=== PATIENT | female | born 1940 | race Caucasian/White ===

== ENCOUNTER 2019-12-22 12:25 | Inpatient (IN) ==
--- NOTE | 2019-12-22 12:54 | ED.PDOC ---
General ED Provider: Dr. SHAYY PEREZ MD Chief Complaint: Extremity Swelling/Pain Stated Complaint: mild to mod general weakness for one week, released from [facility] on , pt of Dr Ac, hx bilateral extremity swelling, poor historian, no injury Time Seen by Physician: 12:52 Mode of Arrival: Ambulance Information Source: Patient and EMT Primary Care Provider: MATTI AC Nursing and Triage Documentation Reviewed and Agree: Yes Does patient meet sepsis criteria?: No System Inflammatory Response Syndrome: Not Applicable Sepsis Protocol: For patient's 13 years and over: Temp is 96.8 and below OR 101 and greater Pulse >90 BPM Resp >20/minute Acutely Altered Mental Status Are patient's symptoms suggestive of a new infection, such as: -Pneumonia -Skin, Soft Tissue -Endocarditis -UTI -Bone, Joint Infection -Implantable Device -Acute Abdominal Infection -Wound Infection -Meningitis -Blood Stream Catheter Infection -Unknown Miscellaneous Complaint Exam Complex/Multi-System Complaint/Exam Onset/Duration: one week Symptoms Are: Still present Initial Severity: Mild Current Severity: Moderate Location of Pain: diffuse aches Associated Signs and Symptoms: Reports Weakness and Edema; Denies Syncope, Headache, Short of air, Cough, Chest pain, Vomiting and Fever Review of Systems Review Of Systems Constitutional: Reports Malaise and Weakness; Denies Fever Eyes: Denies Vision change and Drainage Ears, Nose, Mouth, Throat: Denies Throat pain Respiratory: Reports Cough; Denies Short of air, Stridor and Wheezing Cardiac: Denies Chest pain GI: Denies Abdominal pain and Vomiting : Denies Burning Musculoskeletal: Denies Neck pain Skin: Denies Cyanosis Neurological: Denies Headache All Other Systems: Other PFSH Female Reproductive History Menstrual Hx Hysterectomy: Yes Hx Tubal Ligation: No Physical Exam Physical Exam Appearance: Reports No pain distress Eyes: Reports Conjunctiva clear ENT: Reports Oropharynx normal Neck: Supple Respiratory: Reports Airway patent and Breath sounds equal Cardiovascular: Reports Tachycardia GI/: Reports Soft and Nontender Musculoskeletal: Denies No edema Skin: Reports Warm and Dry; Denies Cyanotic Neurological: Reports Sensation intact, Alert and Oriented Psychiatric: Reports Affect appropriate Interpretation Radiology Interpretation Radiology Interpretation By: Radiologist Exam Interpreted: Portable CXR Xray Comments: possible left base infil EKG Interpretation Time of EKG #1: 13:49 Rate: Tachy Rhythm: Sinus Ectopy: None Interpretation: no stemi, anterolateral t abnormality also seen 01/2014 Re-Evaluation Re-Evaluation Time of Re-Evaluation: 13:50 Status: Unchanged Vital Signs Stable: Yes Appearance: NAD Skin: Warm and Dry CV: RRR Additional Comments: admit to tele d/w Dr Ac Critical Care Note Critical Care Note Total Time (mins): 0 Course Course Hematology/Chemistry: 12/22/19 13:00 12/22/19 13:00 Orders, Labs, Meds: Lab Review 12/22/19 12/22/19 12/22/19 13:00 13:00 13:00 WBC 9.25 RBC 3.14 L Hgb 10.1 L Hct 31.9 L MCV 101.6 H MCH 32.2 H MCHC 31.7 L RDW Coeff of Vishnu 14.3 Plt Count 272 Immature Gran % (Auto) 4.0 Neut % (Auto) 71.7 Lymph % (Auto) 15.1 [place] % (Auto) 7.5 Eos % (Auto) 1.5 Baso % (Auto) 0.2 Neut # (Auto) 6.6 Lymph # (Auto) 1.4 [place] # (Auto) 0.7 Eos # (Auto) 0.1 Baso # (Auto) 0.0 Immature Gran # (Auto) 0.4 PT 10.1 INR 1.03 Puncture Site O2 Saturation ABG pH ABG pCO2 ABG pO2 ABG HCO3 ABG Total CO2 ABG Base Excess Lorenzo Test O2 Delivery Device Oxygen Liter Flow Sodium 132.8 L Potassium 4.36 Chloride 98.3 Carbon Dioxide 30.3 H Anion Gap 8.56 BUN 17.8 H Creatinine 0.80 Estimated GFR (MDRD) 69.00 BUN/Creatinine Ratio 22.25 Glucose 111.5 H Lactic Acid Calcium 8.43 Total Bilirubin 0.33 AST 34.2 ALT 23.0 Alkaline Phosphatase 113.0 Total Creatine Kinase 30.4 Troponin I 0.017 Total Protein 5.38 L Albumin 2.78 L Globulin 2.60 Albumin/Globulin Ratio 1.06 Procalcitonin Urine Color Urine Clarity Urine pH Ur Specific [place] Urine Protein Urine Glucose (UA) Urine Ketones Urine Blood Urine Nitrite Urine Bilirubin Urine Urobilinogen Ur Leukocyte Esterase Urine Microscopic WBC Ur Squamous Epith Cells Urine Bacteria Urine Yeast 12/22/19 12/22/19 12/22/19 13:00 13:00 13:00 WBC RBC Hgb Hct MCV MCH MCHC RDW Coeff of Vishnu Plt Count Immature Gran % (Auto) Neut % (Auto) Lymph % (Auto) [place] % (Auto) Eos % (Auto) Baso % (Auto) Neut # (Auto) Lymph # (Auto) [place] # (Auto) Eos # (Auto) Baso # (Auto) Immature Gran # (Auto) PT INR Puncture Site O2 Saturation ABG pH ABG pCO2 ABG pO2 ABG HCO3 ABG Total CO2 ABG Base Excess Lorenzo Test O2 Delivery Device Oxygen Liter Flow Sodium Potassium Chloride Carbon Dioxide Anion Gap BUN Creatinine Estimated GFR (MDRD) BUN/Creatinine Ratio Glucose Lactic Acid 1.99 Calcium Total Bilirubin AST ALT Alkaline Phosphatase Total Creatine Kinase Troponin I Total Protein Albumin Globulin Albumin/Globulin Ratio Procalcitonin 0.16 Urine Color Yellow Urine Clarity Turbid Urine pH 8.5 Ur Specific [place] 1.020 Urine Protein 2+ H Urine Glucose (UA) Negative Urine Ketones Negative Urine Blood 2+ H Urine Nitrite Negative Urine Bilirubin Negative Urine Urobilinogen 0.2 Ur Leukocyte Esterase 3+ H Urine Microscopic WBC Tntc Ur Squamous Epith Cells 2-5 Urine Bacteria 1+ Urine Yeast 1+ 12/22/19 13:05 WBC RBC Hgb Hct MCV MCH MCHC RDW Coeff of Vishnu Plt Count Immature Gran % (Auto) Neut % (Auto) Lymph % (Auto) [place] % (Auto) Eos % (Auto) Baso % (Auto) Neut # (Auto) Lymph # (Auto) [place] # (Auto) Eos # (Auto) Baso # (Auto) Immature Gran # (Auto) PT INR Puncture Site + O2 Saturation 99.0 ABG pH 7.457 H ABG pCO2 39.9 ABG pO2 130.0 H ABG HCO3 28.2 H ABG Total CO2 29 H ABG Base Excess 4 H Lorenzo Test L brach O2 Delivery Device Nc Oxygen Liter Flow 2.00 Sodium Potassium Chloride Carbon Dioxide Anion Gap BUN Creatinine Estimated GFR (MDRD) BUN/Creatinine Ratio Glucose Lactic Acid Calcium Total Bilirubin AST ALT Alkaline Phosphatase Total Creatine Kinase Troponin I Total Protein Albumin Globulin Albumin/Globulin Ratio Procalcitonin Urine Color Urine Clarity Urine pH Ur Specific [place] Urine Protein Urine Glucose (UA) Urine Ketones Urine Blood Urine Nitrite Urine Bilirubin Urine Urobilinogen Ur Leukocyte Esterase Urine Microscopic WBC Ur Squamous Epith Cells Urine Bacteria Urine Yeast Orders Category Date Time Status ABG DRAW REQUEST Stat CARDIO 06/29/20 12:49 Completed EKG-(ED ONLY) Stat CARDIO 12/22/19 13:11 Completed ABG Stat LAB 12/22/19 13:05 Completed BLOOD CULTURE Stat LAB 12/22/19 13:47 Ordered CBC W/ AUTO DIFF Stat LAB 12/22/19 13:00 Completed COMPREHENSIVE METABOLIC PANEL Stat LAB 12/22/19 13:00 Completed CREATINE KINASE Stat LAB 12/22/19 13:00 Completed LACTIC ACID Stat LAB 12/22/19 13:00 Completed PROCALCITONIN Stat LAB 12/22/19 13:00 Completed PT WITH INR Stat LAB 12/22/19 13:00 Completed TROPONIN I Stat LAB 12/22/19 13:00 Completed URINALYSIS C & S IF INDICATED Stat LAB 12/22/19 13:00 Completed URINE CULTURE Stat LAB 12/22/19 13:00 Received 1 gm/50 ml IV Daily Ninfa MEDS 12/23/19 09:00 Ordered Ceftriaxone/D5w 1 gm Premix [Rocephin 1 gm/50 ml D5w] 1 gm in 50 ml IV DAILY CHEST, 1V AP ONLY Stat RADS 12/22/19 12:49 Completed Vital Signs: Temp Pulse Resp BP Pulse Ox 12/22/19 12:26 97.7 F 114 H 24 106/56 L 98 Discharge Plan Discharge Patient Disposition: ADMITTED INPATIENT Discharge Problem: Urinary tract infectious disease, Tachycardia Prescriptions: No Action simvastatin 20 MG tablet 20 mg PO DAILY RF: 0 omeprazole 20 MG capsule,delayed release(DR/EC) 20 mg PO DAILY RF: 0 lisinopril-hydrochlorothiazide [Zestoretic] 1 EACH tablet 1 ea PO DAILY RF: 0 fluticasone propion-salmeterol [Advair Diskus] 1 PUFF blister with device 1 puff inhalation BID RF: 0 ursodiol 250 MG tablet 250 mg PO BID RF: 0 Myrbetriq 50 MG tablet extended release 24 hr 50 mg PO DAILY Qty: 21 RF: 0 Eliquis 5 mg Tablet 5 mg PO BID RF: 0 ED Provider: SHAYY PEREZ Condition: Stable
[2019-12-22 13:07] LABS: HEMATOCRIT 31.9 % (37.0-47.0)
--- NOTE | 2019-12-22 13:36 | DI ---
EXAM: Chest one view, frontal view only. HISTORY: Weakness. COMPARISON: 02/02/2014. FINDINGS: The heart size is normal. There is no pulmonary vascular congestion. There is increased opacity in the left retrocardiac region with blunting of left costophrenic angle. Otherwise, the jose gs are clear. No pleural effusion or pneumothorax is seen. No acute osseous abnormality is identifi ed. IMPRESSION: Left basilar opacity could be accentuated by portable technique. Mild consolidation not excluded.
[2019-12-22] MEDS ORDERED: ATROPINE SULFATE PFS IVP PRN (13:52)
[2019-12-22] MEDS ORDERED: VISTARIL INJ IM PRN (13:52)
[2019-12-22] MEDS ORDERED: NITROSTAT SL PRN (13:52)
[2019-12-22] MEDS ORDERED: ROCEPHIN 1 GM/50 ML D5W 1 GM/50 ML BAG IV STA (14:06)
[2019-12-22 15:48] VITALS: BMI 26.7
[2019-12-22] MEDS ORDERED: LASIX IVP STA (16:36)
[2019-12-22] MEDS: CALMOSEPTINE OINTMENT TP PRN (17:16)
[2019-12-22] MEDS: TYLENOL PO PRN (17:16)
[2019-12-22] MEDS: SODIUM CHLORIDE 1,000 ML IV SCH (17:17)
[2019-12-22] MEDS: ADVAIR 250-50 DISKUS IH SCH (20:20)
[2019-12-22] MEDS: ZOCOR PO SCH (20:20)
[2019-12-22] MEDS: COLACE PO SCH (20:20)
[2019-12-22] MEDS: ELIQUIS PO SCH (20:21)
[2019-12-22] MEDS: SENNA PO SCH (20:21)
[2019-12-22] MEDS ORDERED: NON-FORMULARY MEDICATION (Fluticasone Propion-Salmeterol [Advair Hfa] 2 PUFF) IH SCH (21:00)
[2019-12-22] MEDS ORDERED: DOCUSATE SODIUM 50 MG PO SCH (21:00)
[2019-12-22] MEDS ORDERED: LOPRESSOR PO SCH (21:00)
[2019-12-22] MEDS: URSODIOL 250 MG PO SCH (21:23)
[2019-12-23 05:36] LABS: HEMATOCRIT 29.4 % (37.0-47.0)
[2019-12-23] MEDS: PRILOSEC PO SCH (05:43)
[2019-12-23] MEDS: TYLENOL PO PRN ×2 (05:43→15:26)
[2019-12-23] MEDS: SODIUM CHLORIDE 1,000 ML IV SCH ×2 (05:44→20:01)
[2019-12-23] MEDS ORDERED: ASPIRIN EC PO SCH (08:30)
[2019-12-23] MEDS: ROCEPHIN 1 GM/50 ML D5W 1 GM/50 ML BAG IV SCH (08:47)
[2019-12-23] MEDS: MYRBETRIQ PO SCH (08:47)
[2019-12-23] MEDS: ADVAIR 250-50 DISKUS IH SCH ×2 (08:48→20:01)
[2019-12-23] MEDS: URSODIOL 250 MG PO SCH ×2 (08:49→20:03)
[2019-12-23] MEDS: ELIQUIS PO SCH ×2 (08:51→20:01)
[2019-12-23] MEDS ORDERED: SYMBICORT 160-4.5 MCG INHALER IH SCH (09:00)
[2019-12-23] MEDS ORDERED: ZESTRIL PO SCH (09:00)
[2019-12-23] MEDS ORDERED: ZESTORETIC 20-12.5 MG TAB PO SCH (09:00)
--- NOTE | 2019-12-23 09:24 | PCM.PROG ---
Attending Provider: ATTENDING PROVIDER: Dr. MATTI AC This patient is seen with Brigida Hanna, Nurse Practitioner. DATE OF SERVICE: 12/23/19 SUBJECTIVE: This 79 year old /WHITE F was hospitalized 12/22/19. The patient is resting comfortably. She is still with edema both upper extremity and left lower extremity. She is short of breath as usual and is somewhat confused. REVIEW OF SYSTEMS: CONSTITUTIONAL: Weakness. No night sweats. No fatigue, malaise, lethargy. No fever or chills. HEENT: Eyes: No visual changes. No eye pain. No eye discharge. ENT: No runny nos e. No epistaxis. No sinus pain. No odynophagia. No congestion. RESPIRATORY: No cough, no congestion. No hemoptysis. Shortness of breath. CARDIOVASCULAR: No angina symptoms. No CHF symptoms. No atypical chest pain for CAD. No palpitations. No orthopnea.. GASTROINTESTINAL: No abdominal pain. No nausea or vomiting. No diarrhea or constipation. No hematemesis. No hematochezia. GENITOURINARY: No urgency. No frequency. No dysuria. No hematuria. No obstructive symptoms. No discharge. No pain. No significant abnormal bleeding. MUSCULOSKELETAL: Generalized edema. No musculoskeletal pain; no joint swelling. NEUROLOGICAL: Confusion. No headache. No neck pain. No syncope. No seizures. No dizziness. PSYCHIATRIC: Not anxious. No depression. No suicidal thoughts. No homicidal thoughts. SKIN: No rash. No lesions. No wounds. ENDOCRINE: No unexplained weight loss. No weight gain. HEMATOLOGIC/LYMPHATIC: No anemia. No purpura. No petechiae. No prolonged or excessive bleeding. No palpable lymph nodes. PHYSICAL EXAMINATION: GENERAL: The patient is confused, lying/sitting in bed in no distress. VITAL SIGNS: Temperature 98.8 F, Pulse 99, Respiratory Rate 18, BP 81/41, Pulse Ox 96% HEENT: Head normocephalic, atraumatic. Eyes: Extraocular muscles are intact. Pupils are equal, round and reactive to light and accommodation. Ears: No lesions. Nose appeared normal. Throat: No exudate or erythema. NECK: Supple. No JVD, no carotid bruit. No lymphadenopathy or thyromegaly. LUNGS: Diminished breath sounds. Clear to auscultation. Percussion note normal. Chest symmetrical. HEART: S1, S2, no S3. No murmurs. No cyanosis or clubbing. No ascites. Pulses: Dorsalis pedis and posterior tibial pulses +1 to +2 both sides. ABDOMEN: Soft. Non-tender. Bowel sounds active. No CVA tenderness. No mass felt. EXTREMITIES: Edema right upper extremity with surrounding erythema +2. +1 edema left lower extremity, +1 left upper extremity. Full range of motion of all extremities, equal. NEUROLOGIC: No focal deficit. Cranial nerves II through XII are grossly intact. No headache, no double vision or headache. SKIN: Not dry. Intact. Turgor-normal. LYMPHATIC: No palpable lymph nodes/no lymphedema. MUSCULOSKELETAL: Normal joints with no swelling. Muscle tone is normal. LAB REVIEW: 12/23/19 05:30 12/23/19 05:30 12/23/19 05:30: Sodium 132.1 L, Potassium 4.32, Chloride 98.6, Carbon Dioxide 32.2 H, Anion Gap 5.62, BUN 16.8, Creatinine 0.79, Estimated GFR (MDRD) 70.00, BUN/Creatinine Ratio 21.26, Glucose 78.1, Calcium 8.24 L, Total Bilirubin 0.36, AST 30.9, ALT 20.7, Alkaline Phosphatase 105.1, Total Protein 4.99 L, Albumin 2.57 L, Globulin 2.42, Albumin/Globulin Ratio 1.06 12/23/19 05:30: WBC 7.90, RBC 2.92 L, Hgb 9.4 L, Hct 29.4 L, MCV 100.7 H, MCH 32.2 H, MCHC 32.0, RDW Coeff of Vishnu 14.2, Plt Count 240, Immature Gran % (Auto) 4.9, Neut % (Auto) 64.4, Lymph % (Auto) 19.5, [place] % (Auto) 8.9, Eos % (Auto) 2.0, Baso % (Auto) 0.3, Neut # (Auto) 5.1, Lymph # (Auto) 1.5, Douglas # (Auto) 0.7, Eos # (Auto) 0.2, Baso # (Auto) 0.0, Immature Gran # (Auto) 0.4 12/22/19 22:00: Total Creatine Kinase 35.2, Troponin I 0.023 12/22/19 13:05: Puncture Site +, O2 Saturation 99.0, ABG pH 7.457 H, ABG pCO2 39.9, ABG pO2 130.0 H, ABG HCO3 28.2 H, ABG Total CO2 29 H, ABG Base Excess 4 H, Lorenzo Test L brach, O2 Delivery Device Nc, Oxygen Liter Flow 2.00 12/22/19 13:00: Urine Color Yellow, Urine Clarity Turbid, Urine pH 8.5, Ur Specific [place] 1.020, Urine Protein 2+ H, Urine Glucose (UA) Negative, Urine Ketones Negative, Urine Blood 2+ H, Urine Nitrite Negative, Urine Bilirubin Negative, Urine Urobilinogen 0.2, Ur Leukocyte Esterase 3+ H, Urine Microscopic WBC Tntc, Ur Squamous Epith Cells 2-5, Urine Bacteria 1+, Urine Yeast 1+ 12/22/19 13:00: Procalcitonin 0.16 12/22/19 13:00: Lactic Acid 1.99 12/22/19 13:00: Sodium 132.8 L, Potassium 4.36, Chloride 98.3, Carbon Dioxide 30.3 H, Anion Gap 8.56, BUN 17.8 H, Creatinine 0.80, Estimated GFR (MDRD) 69.00, BUN/Creatinine Ratio 22.25, Glucose 111.5 H, Calcium 8.43, Total Bilirubin 0.33, AST 34.2, ALT 23.0, Alkaline Phosphatase 113.0, Total Creatine Kinase 30.4, Troponin I 0.017, Total Protein 5.38 L, Albumin 2.78 L, Globulin 2.60, Albumin/Globulin Ratio 1.06 12/22/19 13:00: PT 10.1, INR 1.03 12/22/19 13:00: WBC 9.25, RBC 3.14 L, Hgb 10.1 L, Hct 31.9 L, MCV 101.6 H, MCH 32.2 H, MCHC 31.7 L, RDW Coeff of Vishnu 14.3, Plt Count 272, Immature Gran % (Auto) 4.0, Neut % (Auto) 71.7, Lymph % (Auto) 15.1, [place] % (Auto) 7.5, Eos % (Auto) 1.5, Baso % (Auto) 0.2, Neut # (Auto) 6.6, Lymph # (Auto) 1.4, Douglas # (Auto) 0.7, Eos # (Auto) 0.1, Baso # (Auto) 0.0, Immature Gran # (Auto) 0.4 ASSESSMENT: Please see below. 1. UTI culture pending. 2. Generalized edema. 3. Cellulitis right upper extremity. 4. Severe COPD, oxygen dependent. 5. Generalized weakness. 6. Hyponatremia, improving. 7. Hypotension. PLAN: 1. Hold Zestril and Lopressor 2. Repeat ABGs on 2L. 3. Keep legs elevated, keep right upper extremity elevated. Plan and coordination of the patient's care discussed in the presence of Aircraft Pneudraulics Repairer and nurse. CONDITION: Stable SCRIBED BY: EILEEN PRADHAN Marketing Analyst scribed while in presence of service performed by Dr. Ac/Brigida Hanna APRN on 12/23/19 ([id number])
--- NOTE | 2019-12-23 11:22 | HP ---
DATE OF SERVICE: 12/22/2019 REASON FOR HOSPITALIZATION/HISTORY OF PRESENT ILLNESS: 79 year old white female who was recently at [facility] with acute renal failure and urinary tract infection prior to that she had been at the [facility], [facility]. Over the past several months she has been in and out of the hospital numerous times. She did recently have a PE in October. 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 The patient has continuously refused urology consult PAST SURGICAL HISTORY: Colonoscopy 03/05 refused repeat Status post cholecystectomy REVIEW OF SYSTEMS: CONSTITUTIONAL: No night sweats. No fatigue, malaise, lethargy. No fever or chills. HEENT: Eyes: No visual changes. No eye pain. No eye discharge. ENT: No runny nose. No epistaxis. No sinus pain. No sore throat. No odynophagia. No ear pain. No congestion. RESPIRATORY: No cough, no congestion. No hemoptysis. No shortness of breath. CARDIOVASCULAR: No angina symptoms. No CHF symptoms. No atypical chest pain for CAD. No palpitations. No PND. No orthopnea. GASTROINTESTINAL: No abdominal pain. No nausea or vomiting. No diarrhea or constipation. No hematemesis. No hematochezia. GENITOURINARY: No urgency. No frequency. Dysuria. No hematuria. No obstructive symptoms. No discharge. No pain. No significant abnormal bleeding. MUSCULOSKELETAL: No musculoskeletal pain. No joint swelling. No arthritis. Moderate generalized weakness. Lower leg edema. NEUROLOGICAL: No headache. No neck pain. No syncope. No seizures. No dizziness. PSYCHIATRIC: Not anxious. No depression. No suicidal thoughts. No homicidal thoughts. SKIN: No rash. No lesions. No wounds. ENDOCRINE: No unexplained weight loss. No weight gain. HEMATOLOGIC/LYMPHATIC: No anemia. No purpura. No petechiae. No prolonged or excessive bleeding. No palpable lymph nodes. PERSONAL/FAMILY/SOCIAL HISTORY: Prior to the intermediate she had been living at home with her and her disabled daughter. 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 No alcohol or illicit drug use. MEDICATIONS: Simvastatin 20mg PO BEDTIME Omeprazole 20mg PO BID Zestoretic 20-12.5mg PO daily Advair one puff inhalation BID PRN Ursodiol 250mg PO BID Myrbetriq 50mg PO daily Senna 8.6mg PO BEDTIME Eliquis 5mg PO BID Metoprolol Tartrate 25mg PO Q 12 hours Advair HFA two puffs Inhalation BID Docusate sodium 50mg PO BEDTIME ALLERGIES: No known allergies. PHYSICAL EXAMINATION: VITAL SIGNS: Temperature 97.7, heart rate 114, respiratory rate 24, blood pressure 106/56 and pulse ox 98% on 2 liters. HEENT: Head normocephalic, atraumatic. Eyes: Extraocular muscles are intact. Pupils are equal, round and reactive to light and accommodation. Ears: No lesions. Nose appeared normal. Throat: No exudate or erythema. NECK: Supple. No JVD, no carotid bruit. No lymphadenopathy or thyromegaly. LUNGS: Diminished breath sounds bilaterally. Bilateral expiratory wheezes. Clear to auscultation. Percussion note normal. Chest symmetrical. HEART: S1, S2, no S3. No murmur. No cyanosis or clubbing. No ascites. Pulses: Dorsalis pedis and posterior tibial pulses +1 to +2 bilaterally. ABDOMEN: Soft. Nontender. Bowel sounds active. No CVA tenderness. No mass felt. EXTREMITIES: Trace to 1+ bilateral lower extremity edema. Full range of motion of all extremities, equal. NEUROLOGIC: No focal deficit. Cranial nerves II through XII are grossly intact. No headache, no double vision or headache. SKIN: Not dry. Intact. Turgor - normal. LYMPHATIC: No palpable lymph nodes/no lymphedema. MUSCULOSKELETAL: Normal joints with no swelling. Muscle tone is normal. LABS: WBC 9.25, hgb 10.1, hct 31.9, plt count 272, sodium 132, potassium 4.36, BUN 17, creatinine 0.8, glucose 111, INR 1.03, AST 34, ALT 23, Alkaline phosphatase 113, total protein 5.38, albumin 2.7, globin 2.6. ABG on 2 liter nasal canula O2 saturation 99, pH 7.457, PCO2 39.9, pO2 130, bicarb 28.2, total CO2 29, base excess of 4. U/A was abnormal, Turbid, Urine pH 8.5, 2+ protein, 2+blood, 3+ leuks, microscopic too numerous to count, 1+ bacteria, 1+ yeast. Chest x-ray shows possible left lower lobe infiltrate. ASSESSMENT: 1. Urinary tract infection 2. Leg edema 3. Severe COPD with exacerbation 4. Recent new onset PE on Eliquis 5. Generalized weakness 6. Shortness of breath 7. Oxygen dependent PLAN: 1. We will admit 2. Routine telemetry orders 3. CBC and CMP daily 4. Continue all home medications 5. Urine for culture 6. Start Rocephin 1 gram IV daily 7. Normal saline at 75cc an hour 8. Albuterol inhaler Q 4 hours PRN 9. Oxygen at 1-2 liters 10. Regular diet 11. Elevate legs Will follow closely. Also to be noted she had a UTI on 12/09 culture showed Serratia Marcescens. TIME SPENT: More than 70 minutes. [facility]
[2019-12-23] MEDS: VENTOLIN HFA (PER PUFF-WITH SPACER) IH SCH ×2 (13:57→20:15)
--- NOTE | 2019-12-23 17:44 | DI ---
EXAM: Three views of the lumbar spine INDICATION: Back pain. COMPARISON: None. FINDINGS: There are five lumbar type vertebral bodies. Lumbar levocurvature. No significant listhesis. Vertebral body heights are preserved. No acute fracture. Generalized advanced intervertebral disc space narrowing with mild degenerative endplate spurring thr oughout the lumbar spine. Generalized lumbar facet arthrosis. IMPRESSION: Diffuse moderate to advanced lumbar spondylosis. Consider MRI for further evaluation
[2019-12-23] MEDS: SENNA PO SCH (20:01)
[2019-12-23] MEDS: ZOCOR PO SCH (20:01)
[2019-12-23] MEDS: NORCO 5-325 PO PRN (20:02)
[2019-12-23] MEDS: COLACE PO SCH (20:02)
[2019-12-24] MEDS: VENTOLIN HFA (PER PUFF-WITH SPACER) IH SCH ×3 (04:45→20:06)
[2019-12-24] MEDS: NORCO 5-325 PO PRN ×3 (05:03→20:26)
[2019-12-24 05:36] LABS: HEMATOCRIT 28.6 % (37.0-47.0)
[2019-12-24] MEDS: PRILOSEC PO SCH (05:56)
[2019-12-24] MEDS ORDERED: DECADRON 4 MG/ML SDV IM STA (08:19)
--- NOTE | 2019-12-24 08:32 | PN ---
DATE OF SERVICE: 12/23/19 SUBJECTIVE: The patient was seen and examined with the nurse practitioner. The patient's edema is much less. Systolic blood pressure borderline otherwise physical examination is unremarkable. The patient is being treated for urinary tract infection, cultures pending. TIME SPENT: More than 30 minutes. Plan and coordination of the patient's care discussed in the presence of nurse. JULIO
--- NOTE | 2019-12-24 08:55 | PCM.PROG ---
Attending Provider: ATTENDING PROVIDER: Dr. MATTI AC DATE OF SERVICE: 12/24/19 SUBJECTIVE: This 79 year old /WHITE F was hospitalized 12/22/19 with UTI and extremity swelling. The patient's condition has improved. She is oriented to time, place and person. She was wanting to go to long-term as she was unable to take care of herself. The patient is on Last Catheter since December 02 becaus e of inability to control urine. We have tried to take it out but unable to do it We will try to remove and train the bladder. REVIEW OF SYSTEMS: CONSTITUTIONAL: No night sweats. No fatigue, malaise, lethargy. No fever or chills. HEENT: Eyes: No visual changes. No eye pain. No eye discharge. ENT: No runny nose. No epistaxis. No sinus pain. No odynophagia. No congestion. RESPIRATORY: No cough, no congestion. No hemoptysis. No shortness of breath. CARDIOVASCULAR: No angina symptoms. No CHF symptoms. No atypical chest pain for CAD. No palpitations. No orthopnea.. GASTROINTESTINAL: No abdominal pain. No nausea or vomiting. No diarrhea or constipation. No hematemesis. No hematochezia. GENITOURINARY: No urgency. No frequency. No dysuria. No hematuria. No obstructive symptoms. No discharge. No pain. No significant abnormal bleeding. MUSCULOSKELETAL: No musculoskeletal pain; no joint swelling. NEUROLOGICAL: Awake, alert, oriented to time, place and person. No headache. No neck pain. No syncope. No seizures. No dizziness. PSYCHIATRIC: Not anxious. No depression. No suicidal thoughts. No homicidal thoughts. SKIN: No rash. No lesions. No wounds. ENDOCRINE: No unexplained weight loss. No weight gain. HEMATOLOGIC/LYMPHATIC: No anemia. No purpura. No petechiae. No prolonged or excessive bleeding. No palpable lymph nodes. PHYSICAL EXAMINATION: GENERAL: The patient is awake, alert and oriented, lying/sitting in bed in no distress. VITAL SIGNS: Temperature 98.0 F, Pulse 96, Respiratory Rate 18, BP 108/58, Pulse Ox 99% HEENT: Head normocephalic, atraumatic. Eyes: Extraocular muscles are intact. Pupils are equal, round and reactive to light and accommodation. Ears: No lesions. Nose appeared normal. Throat: No exudate or erythema. NECK: Supple. No JVD, no carotid bruit. No lymphadenopathy or thyromegaly. LUNGS: Clear to auscultation. Percussion note normal. Chest symmetrical. HEART: S1, S2, no S3. No murmurs. No cyanosis or clubbing. No ascites. Pulses: Dorsalis pedis and posterior tibial pulses +1 to +2 both sides. ABDOMEN: Soft. Non-tender. Bowel sounds active. No CVA tenderness. No mass felt. EXTREMITIES: No edema. Full range of motion of all extremities, equal. NEUROLOGIC: No focal deficit. Cranial nerves II through XII are grossly intact. No headache, no double vision or headache. SKIN: Warm and dry. Intact. Turgor-normal. LYMPHATIC: No palpable lymph nodes/no lymphedema. MUSCULOSKELETAL: Normal joints with no swelling. Muscle tone is normal. LAB REVIEW: 12/24/19 05:05 12/24/19 05:05 12/24/19 05:05: Sodium 133.4 L, Potassium 4.36, Chloride 101.4, Carbon Dioxide 31.6 H, Anion Gap 4.76, BUN 13.1, Creatinine 0.72, Estimated GFR (MDRD) 78.00, BUN/Creatinine Ratio 18.19, Glucose 77.5, Calcium 7.88 L, Total Bilirubin 0.22, AST 27.7, ALT 17.8, Alkaline Phosphatase 110.6, Total Protein 4.81 L, Albumin 2.42 L, Globulin 2.39, Albumin/Globulin Ratio 1.01 12/24/19 05:05: WBC 6.46, RBC 2.78 L, Hgb 8.7 L, Hct 28.6 L, MCV 102.9 H, MCH 31.3 H, MCHC 30.4 L, RDW Coeff of Vishnu 14.3, Plt Count 248, Immature Gran % (Auto) 4.8, Neut % (Auto) 58.4, Lymph % (Auto) 23.2, [place] % (Auto) 10.5 H, Eos % (Auto) 2.8, Baso % (Auto) 0.3, Neut # (Auto) 3.8, Lymph # (Auto) 1.5, [place] # (Auto) 0.7, Eos # (Auto) 0.2, Baso # (Auto) 0.0, Immature Gran # (Auto) 0.3 12/23/19 08:40: Puncture Site R rad, O2 Saturation 97.0, ABG pH 7.494 H, ABG pCO2 38.5, ABG pO2 88.0, ABG HCO3 29.6 H, ABG Total CO2 31 H, ABG Base Excess 6 H, Lorenzo Test +, O2 Delivery Device Nc, Oxygen Liter Flow 2.00 ASSESSMENT: Please see below. 1. UTI, under control with antibiotics. The patient is on Rocephin 2. History of PE in hospital in [place] a couple of times. She is on Eliquis 3. Chronic anemia PLAN: 1. Continue antibiotics 2. Elevate legs 3. Discontinue Last Catheter and try to train the bladder 4. Refused colonoscopy 5. Urologist consult refused for incontinence 6. Steam Table Associate consult refused for nodule in lung. Plan and coordination of the patient's care discussed in the presence of Entry Manager and nurse. SCRIBED BY: JEFF RENTERIA Electronic Wirer scribed while in presence of service performed by Dr. MATTI AC on 12/24/19 ([id number])
[2019-12-24] MEDS: ROCEPHIN 1 GM/50 ML D5W 1 GM/50 ML BAG IV SCH (08:57)
[2019-12-24] MEDS: MYRBETRIQ PO SCH (08:57)
[2019-12-24] MEDS: ADVAIR 250-50 DISKUS IH SCH ×2 (08:58→20:24)
[2019-12-24] MEDS: ELIQUIS PO SCH ×2 (08:59→20:25)
[2019-12-24] MEDS: URSODIOL 250 MG PO SCH ×2 (09:08→20:17)
[2019-12-24] MEDS: SODIUM CHLORIDE 1,000 ML IV SCH (09:14)
[2019-12-24] MEDS ORDERED: TORADOL IVP STA (12:09)
[2019-12-24] MEDS: ZYVOX 600 MG/300 ML IV SCH ×2 (12:24→20:25)
[2019-12-24] MEDS ORDERED: NORCO 5-325 PO SCH (15:00)
[2019-12-24] MEDS: COLACE PO SCH (20:25)
[2019-12-24] MEDS: ZOCOR PO SCH (20:25)
[2019-12-24] MEDS: SENNA PO SCH (20:25)
[2019-12-25] MEDS: SODIUM CHLORIDE 1,000 ML IV SCH (03:36)
[2019-12-25] MEDS: VENTOLIN HFA (PER PUFF-WITH SPACER) IH SCH ×3 (04:55→21:14)
[2019-12-25 05:41] LABS: HEMATOCRIT 26.2 % (37.0-47.0)
[2019-12-25] MEDS: PRILOSEC PO SCH (05:50)
[2019-12-25] MEDS ORDERED: SODIUM CHLORIDE 1,000 ML IV SCH (08:02)
[2019-12-25] MEDS: MYRBETRIQ PO SCH (08:03)
[2019-12-25] MEDS: ZYVOX 600 MG/300 ML IV SCH ×2 (08:03→20:28)
[2019-12-25] MEDS: ELIQUIS PO SCH ×2 (08:03→20:31)
[2019-12-25] MEDS: NORCO 5-325 PO PRN (08:03)
[2019-12-25] MEDS: ADVAIR 250-50 DISKUS IH SCH ×2 (08:04→20:30)
[2019-12-25] MEDS: URSODIOL 250 MG PO SCH ×2 (08:06→20:30)
--- NOTE | 2019-12-25 08:20 | PCM.PROG ---
Attending Provider: ATTENDING PROVIDER: Dr. MATTI AC This patient is seen with Brigida Hanna, Nurse Practitioner. DATE OF SERVICE: 12/25/19 SUBJECTIVE: This 79 year old /WHITE F was hospitalized 12/22/19. The patient is still slightly uncomfortable, still requiring [place] for pain. The patient is eating moderately well. No fever. Will require IV antibiotics for several days. REVIEW OF SYSTEMS: CONSTITUTIONAL: Weakness. No night sweats. No fatigue, malaise, lethargy. No fever or chills. HEENT: Eyes: No visual changes. No eye pain. No eye discharge. ENT: No runny nose. No epistaxis. No sinus pain. No odynophagia. No congestion. RESPIRATORY: No cough, no congestion. No hemoptysis. Shortness of breath. CARDIOVASCULAR: No angina symptoms. No CHF symptoms. No atypical chest pain for CAD. No palpitations. No orthopnea.. GASTROINTESTINAL: No abdominal pain. No nausea or vomiting. No diarrhea or constipation. No hematemesis. No hematochezia. GENITOURINARY: No urgency. No frequency. No dysuria. No hematuria. No obstructive symptoms. No discharge. No pain. No significant abnormal bleeding. MUSCULOSKELETAL: Still having pain. NEUROLOGICAL: Awake, alert, oriented to time, place and person. No headache. No neck pain. No syncope. No seizures. No dizziness. PSYCHIATRIC: Not anxious. No depression. No suicidal thoughts. No homicidal thoughts. SKIN: No rash. No lesions. No wounds. ENDOCRINE: No unexplained weight loss. No weight gain. HEMATOLOGIC/LYMPHATIC: Anemia. No purpura. No petechiae. No prolonged or excessive bleeding. No palpable lymph nodes. PHYSICAL EXAMINATION: GENERAL: The patient is awake, alert and oriented, lying/sitting in bed in no distress. VITAL SIGNS: Temperature 97.6 F, Pulse 84, Respiratory Rate 20, BP 122/58, Pulse Ox 97% HEENT: Head normocephalic, atraumatic. Eyes: Extraocular muscles are intact. Pupils are equal, round and reactive to light and accommodation. Ears: No lesions. Nose appeared normal. Throat: No exudate or erythema. NECK: Supple. No JVD, no carotid bruit. No lymphadenopathy or thyromegaly. LUNGS: Diminished breath sounds. Clear to auscultation. Percussion note nor mal. Chest symmetrical. HEART: S1, S2, no S3. No murmurs. No cyanosis or clubbing. No ascites. Pulses: Dorsalis pedis and posterior tibial pulses +1 to +2 both sides. ABDOMEN: Soft. Non-tender. Bowel sounds active. No CVA tenderness. No mass felt. EXTREMITIES: +1 swelling lower extremity. Edema in upper extremity improved. No edema. Full range of motion of all extremities, equal. NEUROLOGIC: No focal deficit. Cranial nerves II through XII are grossly intact. No headache, no double vision or headache. SKIN: Not dry. Intact. Turgor-normal. LYMPHATIC: No palpable lymph nodes/no lymphedema. MUSCULOSKELETAL: Normal joints with no swelling. Muscle tone is normal. LAB REVIEW: 12/25/19 05:20 12/25/19 05:20 12/25/19 05:20: Sodium 129.7 L, Potassium 5.10, Chloride 98.0, Carbon Dioxide 29.7, Anion Gap 7.10, BUN 18.0 H, Creatinine 0.80, Estimated GFR (MDRD) 69.00, BUN/Creatinine Ratio 22.50, Glucose 161.3 H, Calcium 7.52 L, Total Bilirubin 0.12 L, AST 25.7, ALT 16.5, Alkaline Phosphatase 136.9 D, Total Protein 4.85 L, Albumin 2.45 L, Globulin 2.40, Albumin/Globulin Ratio 1.02 12/25/19 05:20: WBC 7.31, RBC 2.59 L, Hgb 8.2 L, Hct 26.2 L, MCV 101.2 H, MCH 31.7 H, MCHC 31.3 L, RDW Coeff of Vishnu 14.0, Plt Count 222, Immature Gran % (Auto) 2.6, Neut % (Auto) 78.9 H, Lymph % (Auto) 11.6, [place] % (Auto) 6.8, Eos % (Auto) 0.0, Baso % (Auto) 0.1, Neut # (Auto) 5.8, Lymph # (Auto) 0.9, [place] # (Au to) 0.5, Eos # (Auto) 0.0, Baso # (Auto) 0.0, Immature Gran # (Auto) 0.2 12/24/19 05:05: Transferrin 129 L 12/24/19 05:05: Iron 44.9, TIBC 182 L, % Saturation 25, Vitamin B12 323 12/24/19 05:05: Ferritin 178.00, Folate 4.57 12/24/19 05:05: Reticulocyte % (Auto) 4.06, Absolute Retic 0.1121, Retic Hgb Equivalent 34.2 ASSESSMENT: Please see below. 1. UTI, under control with antibiotics. The patient is on Rocephin. 2. Edema. 3. History of PE in hospital in [place] a couple of times. She is on Eliquis. 4. Chronic anemia PLAN: 1. Decrease IV fluids to KVO. 2. Type and crossmatch and give one unit. Plan and coordination of the patient's care discussed in the presence of Acid Dipper and nurse. CONDITION: Stable SCRIBED BY: EILEEN PRADHAN Resource Technician scribed while in presence of service performed by Dr. Ac/Brigida Hanna APRN on 12/25/19 ([id number])
--- NOTE | 2019-12-25 13:12 | PN ---
DATE OF SERVICE: 12/25/19 SUBJECTIVE: The patient was seen and examined. Condition is stable. Hemoglobin is stable. She has myelodysplastic syndrome. Her appetite seems to have improved. For the pain in the back we had given Toradol 30 mg IV and this seemed to have helped. Otherwise her overall status seems to be stable. Anemia seems to be chronic. Condition is stable. TIME SPENT: More than 30 minutes. Plan and coordination of the patient's care discussed in the presence of nurse. JULIO
[2019-12-25 17:10] LABS: HEMATOCRIT 32.4 % (37.0-47.0)
[2019-12-25] MEDS: COLACE PO SCH (20:28)
[2019-12-25] MEDS: SENNA PO SCH (20:28)
[2019-12-25] MEDS: ZOCOR PO SCH (20:28)
[2019-12-26] MEDS: VENTOLIN HFA (PER PUFF-WITH SPACER) IH SCH ×3 (04:43→19:30)
[2019-12-26 05:21] LABS: HEMATOCRIT 32.4 % (37.0-47.0)
[2019-12-26] MEDS: PRILOSEC PO SCH (05:50)
[2019-12-26] MEDS: NORCO 5-325 PO PRN (08:19)
[2019-12-26] MEDS: MYRBETRIQ PO SCH (08:19)
[2019-12-26] MEDS: ELIQUIS PO SCH ×2 (08:19→21:06)
[2019-12-26] MEDS: URSODIOL 250 MG PO SCH (08:37)
[2019-12-26] MEDS: ZYVOX 600 MG/300 ML IV SCH ×2 (09:40→21:02)
[2019-12-26] MEDS: ADVAIR 250-50 DISKUS IH SCH ×2 (09:40→21:03)
[2019-12-26] MEDS: ACTIGALL PO SCH (21:02)
[2019-12-26] MEDS: COLACE PO SCH (21:02)
[2019-12-26] MEDS: ZOCOR PO SCH (21:02)
[2019-12-26] MEDS: SENNA PO SCH (21:02)
[2019-12-27] MEDS: VENTOLIN HFA (PER PUFF-WITH SPACER) IH SCH ×3 (04:55→19:40)
[2019-12-27 05:15] LABS: HEMATOCRIT 31.4 % (37.0-47.0)
[2019-12-27] MEDS: PRILOSEC PO SCH (05:53)
[2019-12-27] MEDS: ADVAIR 250-50 DISKUS IH SCH ×2 (08:33→21:03)
[2019-12-27] MEDS: MYRBETRIQ PO SCH (08:34)
[2019-12-27] MEDS: ELIQUIS PO SCH ×2 (08:34→20:54)
[2019-12-27] MEDS: ACTIGALL PO SCH ×2 (08:34→20:54)
[2019-12-27] MEDS: ZYVOX 600 MG/300 ML IV SCH ×2 (08:34→20:53)
[2019-12-27] MEDS: ZOCOR PO SCH (20:53)
[2019-12-27] MEDS: NORCO 5-325 PO PRN (20:53)
[2019-12-27] MEDS: SENNA PO SCH (20:53)
[2019-12-27] MEDS: COLACE PO SCH (20:53)
[2019-12-27] MEDS ORDERED: LOPRESSOR PO STA (21:47)
[2019-12-28] MEDS: VENTOLIN HFA (PER PUFF-WITH SPACER) IH SCH ×3 (04:45→19:55)
[2019-12-28 05:06] LABS: HEMATOCRIT 30.6 % (37.0-47.0)
[2019-12-28] MEDS: PRILOSEC PO SCH (05:55)
[2019-12-28] MEDS: ZYVOX 600 MG/300 ML IV SCH ×2 (08:29→20:47)
[2019-12-28] MEDS: MYRBETRIQ PO SCH (08:29)
[2019-12-28] MEDS: NORCO 5-325 PO PRN (08:29)
[2019-12-28] MEDS: ACTIGALL PO SCH ×2 (08:29→20:47)
[2019-12-28] MEDS: ELIQUIS PO SCH ×2 (08:29→20:48)
[2019-12-28] MEDS: ADVAIR 250-50 DISKUS IH SCH ×2 (08:50→20:46)
[2019-12-28] MEDS ORDERED: TORADOL IVP ONE (12:00)
[2019-12-28] MEDS: LEXAPRO PO SCH (12:06)
[2019-12-28] MEDS ORDERED: LASIX IVP ONE (13:00)
[2019-12-28] MEDS: LOPRESSOR PO SCH (20:47)
[2019-12-28] MEDS: COLACE PO SCH (21:31)
[2019-12-28] MEDS: SENNA PO SCH (21:31)
[2019-12-29] MEDS: VENTOLIN HFA (PER PUFF-WITH SPACER) IH SCH ×3 (04:55→19:30)
[2019-12-29 05:37] LABS: HEMATOCRIT 28.8 % (37.0-47.0)
[2019-12-29] MEDS: PRILOSEC PO SCH (05:46)
--- NOTE | 2019-12-29 08:13 | PCM.PROG ---
Attending Provider: ATTENDING PROVIDER: Dr. MATTI AC This patient is seen with Brigida Hanna, Nurse Practitioner. DATE OF SERVICE: 12/29/19 SUBJECTIVE: This 79 year old /WHITE F was hospitalized 12/22/19. The patient is lying in bed, uncomfortable with pain. She has been up and down with diarrhea multiple times through the night. C. diff pending. REVIEW OF SYSTEMS: CONSTITUTIONAL: Weakness. No night sweats. No fatigue, malaise, lethargy. No fever or chills. HEENT: Eyes: No visual changes. No eye pain. No eye discharge. ENT: No runny nose. No epistaxis. No sinus pain. No odynophagia. No congestion. RESPIRATORY: No cough, no congestion. No hemoptysis. No shortness of breath. CARDIOVASCULAR: No angina symptoms. No CHF symptoms. No atypical chest pain for CAD. No palpitations. No orthopnea.. GASTROINTESTINAL: Diarrhea. Lower abdominal pain. No nausea or vomiting. No constipation. No hematemesis. No hematochezia. GENITOURINARY: No urgency. No frequency. No dysuria. No hematuria. No obstructive symptoms. No discharge. No pain. No significant abnormal bleeding. MUSCULOSKELETAL: Back pain. NEUROLOGICAL: Awake, alert, oriented to place and person. No headache. No neck pain. No syncope. No seizures. No dizziness. PSYCHIATRIC: Not anxious. No depression. No suicidal thoughts. No homicidal thoughts. SKIN: No rash. No lesions. No wounds. ENDOCRINE: No unexplained weight loss. No weight gain. HEMATOLOGIC/LYMPHATIC: No anemia. No purpura. No petechiae. No prolonged or excessive bleeding. No palpable lymph nodes. PHYSICAL EXAMINATION: GENERAL: The patient is awake, alert and oriented, lying/sitting in bed, uncomfortable. VITAL SIGNS: Temperature 98.5 F, Pulse 89, Respiratory Rate 20, BP 111/58, Pulse Ox 100% HEENT: Head normocephalic, atraumatic. Eyes: Extraocular muscles are intact. Pupils are equal, round and reactive to light and accommodation. Ears: No lesions. Nose appeared normal. Throat: No exudate or erythema. NECK: Supple. No JVD, no carotid bruit. No lymphadenopathy or thyromegaly. LUNGS: Diminished breath sounds. Clear to auscultation. Percussion note normal. Chest symmetrical. HEART: S1, S2, no S3. No murmurs. No cyanosis or clubbing. No ascites. Pulses: Dorsalis pedis and posterior tibial pulses +1 to +2 both sides. ABDOMEN: Soft. Non-tender. Bowel sounds active. No CVA tenderness. No mass felt. EXTREMITIES: No edema. Full range of motion of all extremities, equal. NEUROLOGIC: No focal deficit. Cranial nerves II through XII are grossly intact. No headache, no double vision or headache. SKIN: Not dry. Intact. Turgor-normal. LYMPHATIC: No palpable lymph nodes/no lymphedema. MUSCULOSKELETAL: Normal joints with no swelling. Muscle tone is normal. LAB REVIEW: 12/29/19 05:32 12/29/19 05:32 12/29/19 05:32: Sodium 131.1 L, Potassium 4.42, Chloride 96.6 L, Carbon Dioxide 33.8 H, Anion Gap 5.12, BUN 17.7 H, Creatinine 0.81, Estimated GFR (MDRD) 68.00, BUN/Creatinine Ratio 21.85, Glucose 91.1, Calcium 7.37 L, Total Bilirubin 0.32, AST 28.9, ALT 17.3, Alkaline Phosphatase 136.0, Total Protein 4.77 L, Albumin 2.46 L, Globulin 2.31, Albumin/Globulin Ratio 1.06 12/29/19 05:32: WBC 7.08, RBC 2.88 L, Hgb 9.2 L, Hct 28.8 L, MCV 100.0 H, MCH 31.9 H, MCHC 31.9, RDW Coeff of Vishnu 14.8, Plt Count 201, Immature Gran % (Auto) 1.0, Neut % (Auto) 76.1 H, Lymph % (Auto) 14.7, [place] % (Auto) 5.4, Eos % (Auto) 2.4, Baso % (Auto) 0.4, Neut # (Auto) 5.4, Lymph # (Auto) 1.0, [place] # (Auto) 0.4, Eos # (Auto) 0.2, Baso # (Auto) 0.0, Immature Gran # (Auto) 0.1 ASSESSMENT: Please see below. 1. UTI, under control with antibiotics. The patient is on Rocephin. 2. Edema. 3. History of PE in hospital in [place] a couple of times. She is on Eliquis. 4. Chronic anemia PLAN: 1. Flagyl 500 IV q.8hr 2. [place] [facility]U 3. C.diff pending 4. CT L-spine 5. CT abdomen & pelvis w/wo. Plan and coordination of the patient's care discussed in the presence of Television Audio Engineer and nurse. CONDITION: Stable SCRIBED BY: EILEEN PRADHAN Director Communications scribed while in presence of service performed by Dr. Ac/Brigida Hanna APRN on 12/29/19 ([id number])
[2019-12-29] MEDS: FLAGYL 500 MG/100 ML 500 MG/100 ML BAG IV SCH ×3 (09:04→20:24)
[2019-12-29] MEDS: ADVAIR 250-50 DISKUS IH SCH ×2 (09:04→20:29)
[2019-12-29] MEDS: ACTIGALL PO SCH ×2 (09:04→20:23)
--- NOTE | 2019-12-29 09:04 | CT ---
EXAM: CT lumbar spine with and without contrast. HISTORY: Lower back pain COMPARISON: CT abdomen pelvis 06/04/2018 TECHNIQUE: Serial axial images of the spine were obtained from the lower thoracic spine through the pelvis without contrast. These were viewed in multiple planes. FINDINGS: Vertebral bodies demonstrate no acute compression fracture. There is trace retrolisthesis of L2 on L3. There is multilevel disc space narrowing and anterior and posterior disc osteophytes. There is moderate facet arthropathy. There is leftward curvature of the lumbosacral spine. L1-L2: Mild facet arthropathy and disc space narrowing with no central or neural foraminal narrowing. L2-L3: There is trace retrolisthesis with facet arthropathy with no central or neural foraminal narro wing. L3-L4: Disc space narrowing with facet arthropathy with no central, but bilateral moderate neural for aminal narrowing. L4-L5: This space narrowing with facet arthropathy with no central or neural foraminal narrowing. L5-S1: Small broad-based disc bulge with facet arthropathy and posterior disc osteophytes. Limited views of the soft tissues demonstrate trace effusions. There is no contrast enhancing lesion with minimal diverticulosis. IMPRESSION: 1. No acute compression fracture with trace retrolisthesis of L2 on L3. 2. Multilevel moderate degenerative disease of the spine with bilateral moderate neural foraminal na rrowing at L3-L4. 3. Trace pleural effusions with diverticulosis.
[2019-12-29] MEDS: ELIQUIS PO SCH ×2 (09:05→20:24)
[2019-12-29] MEDS: ZESTRIL PO SCH (09:05)
[2019-12-29] MEDS: LEXAPRO PO SCH (09:05)
[2019-12-29] MEDS: NORCO 5-325 PO SCH ×2 (09:05→20:24)
[2019-12-29] MEDS: LOPRESSOR PO SCH ×2 (09:05→20:23)
[2019-12-29] MEDS: MYRBETRIQ PO SCH (09:05)
[2019-12-29] MEDS: CALMOSEPTINE OINTMENT TP PRN (09:14)
--- NOTE | 2019-12-29 10:03 | CT ---
CT ABDOMEN PELVIS WITH AND WITHOUT EXAM: CT abdomen pelvis with and without contrast HISTORY: Diarrhea with abdominal pain COMPARISON: CT abdomen pelvis 06/04/2018 and 06/02/2018 TECHNIQUE: Serial axial images of the abdomen pelvis were performed before and after 75 mL is of Omn ipaque IV contrast was administered. These were obtained from the lung bases through the inferior pe lvis. FINDINGS: The lung bases demonstrate trace bilateral pleural effusions with left lung base atelectas is and changes of minimal emphysema. The liver is unremarkable. There is unchanged pneumobilia and prior cholecystectomy changes. There are calcified granulomas present. The adrenal glands are unremarkable. The kidneys are normal. The spleen demonstrates calcified granulomas. Pancreas is normal. Stomach is unremarkable. The small bowel in the abdomen and pelvis is unremarkable. There are phillips es of diverticulosis without diverticulitis. There are multiple rounded densities in the cecum. Uri nary bladder demonstrates a Lats catheter and is decompressed. There is no free air, free fluid or lymphadenopathy. The osseous structures are unremarkable. IMPRESSION: 1. No acute abnormality to account for patient's symptoms. 2. Diverticulosis without diverticulitis. 3. Prior cholecystectomy with stable pneumobilia. 4. Sequela of old granulomatous disease with atherosclerotic disease and degenerative disease of the spine.
[2019-12-29] MEDS: ZYVOX 600 MG/300 ML IV SCH ×2 (10:23→21:44)
--- NOTE | 2019-12-29 14:34 | PN ---
DATE OF SERVICE: 12/27/19 SUBJECTIVE: The patient was seen and examined this morning. The patient's condition was stable. The patient is drowsy and sleepy, complaining of back pain. REVIEW OF SYSTEMS: CONSTITUTIONAL: No night sweats. No fatigue, malaise, lethargy. No fever or chills. HEENT: Eyes: No visual changes. No eye pain. No eye discharge. ENT: No runny nose. No epistaxis. No sinus pain. No sore throat. No odynophagia. No congestion. RESPIRATORY: No cough, no congestion. No hemoptysis. No shortness of breath. CARDIOVASCULAR: No angina symptoms. No CHF symptoms. No atypical chest pain for CAD. No palpitations. No PND. No orthopnea. GASTROINTESTINAL: Appetite is acceptable. No abdominal pain. No nausea or vomiting. No diarrhea or constipation. No hematemesis. No hematochezia. GENITOURINARY: No urgency. No frequency. No dysuria. No hematuria. No obstructive symptoms. No discharge. No pain. No significant abnormal bleeding. MUSCULOSKELETAL: Back pain. NEUROLOGICAL: No headache. No neck pain. No syncope. No seizures. No dizziness. PSYCHIATRIC: Not anxious. No depression. No suicidal thoughts. No homicidal thoughts. SKIN: No rash. No lesions. No wounds. ENDOCRINE: No unexplained weight loss. No weight gain. HEMATOLOGIC/LYMPHATIC: No anemia. No purpura. No petechiae. No prolonged or excessive bleeding. No palpable lymph nodes. PHYSICAL EXAMINATION: HEENT: Head normocephalic, atraumatic. Eyes: Extraocular muscles are intact. Pupils are equal, round and reactive to light and accommodation. Ears: No lesions. Nose appeared normal. Throat: No exudate or erythema. NECK: Supple. No JVD, no carotid bruit. No lymphadenopathy or thyromegaly. LUNGS: Decreased breath sounds but clear to auscultation. Percussion note normal. Chest symmetrical. HEART: S1, S2, no S3. No murmurs. No cyanosis or clubbing. No ascites. Pulses: Dorsalis pedis and posterior tibial pulses +1 to +2 bilaterally. ABDOMEN: Soft. Nontender. Bowel sounds active. No CVA tenderness. No mass felt. EXTREMITIES: No edema. Full range of motion of all extremities, equal. NEUROLOGIC: No focal deficit. Cranial nerves II through XII are grossly intact. No headache, no double vision or headache. SKIN: Not dry. Intact. Turgor - normal. LYMPHATIC: No palpable lymph nodes/no lymphedema. MUSCULOSKELETAL: Normal joints with no swelling. Muscle tone is normal. TIME SPENT: More than 30 minutes. Plan and coordination of the patient's care discussed in the presence of nurse. JULIO
[2019-12-29] MEDS: SODIUM CHLORIDE 1,000 ML IV SCH (15:32)
[2019-12-29] MEDS: TYLENOL PO PRN (16:07)
[2019-12-29] MEDS: COLACE PO SCH (20:56)
[2019-12-29] MEDS: SENNA PO SCH (20:58)
[2019-12-30 04:29] LABS: HEMATOCRIT 28.3 % (37.0-47.0)
[2019-12-30] MEDS: VENTOLIN HFA (PER PUFF-WITH SPACER) IH SCH ×3 (05:10→20:05)
[2019-12-30] MEDS: FLAGYL 500 MG/100 ML 500 MG/100 ML BAG IV SCH ×3 (05:26→20:13)
[2019-12-30] MEDS: PRILOSEC PO SCH (05:30)
[2019-12-30] MEDS: SODIUM CHLORIDE 1,000 ML IV SCH (07:03)
[2019-12-30] MEDS: ZYVOX 600 MG/300 ML IV SCH ×2 (08:24→22:07)
[2019-12-30] MEDS: MYRBETRIQ PO SCH (08:25)
[2019-12-30] MEDS: ACTIGALL PO SCH ×2 (08:25→20:13)
[2019-12-30] MEDS: LEXAPRO PO SCH (08:25)
[2019-12-30] MEDS: NORCO 5-325 PO SCH ×2 (08:25→20:14)
[2019-12-30] MEDS: LOPRESSOR PO SCH ×2 (08:25→20:13)
[2019-12-30] MEDS: ZESTRIL PO SCH (08:26)
[2019-12-30] MEDS: ADVAIR 250-50 DISKUS IH SCH ×2 (08:26→20:18)
[2019-12-30] MEDS: ELIQUIS PO SCH ×2 (08:26→20:14)
--- NOTE | 2019-12-30 09:22 | PCM.PROG ---
Attending Provider: ATTENDING PROVIDER: Dr. MATTI AC This patient is seen with Brigida Hanna, Nurse Practitioner. DATE OF SERVICE: 12/30/19 SUBJECTIVE: This 79 year old /WHITE F was hospitalized 12/22/19. The patient is resting comfortably. The pain seems to be controlled with [place] twice daily. She is still having very little urine output. Swelling has improved. Very weak. She will work with PT today to assess her ability. REVIEW OF SYSTEMS: CONSTITUTIONAL: No night sweats. No fatigue, malaise, lethargy. No fever or chills. Weakness. HEENT: Eyes: No visual changes. No eye pain. No eye discharge. ENT: No runny nose. No epistaxis. No sinus pain. No odynophagia. No congestion. RESPIRATORY: No cough, no congestion. No hemoptysis. No shortness of breath. CARDIOVASCULAR: No angina symptoms. No CHF symptoms. No atypical chest pain for CAD. No palpitations. No orthopnea.. GASTROINTESTINAL: No abdominal pain. No nausea or vomiting. No diarrhea or constipation. No hematemesis. No hematochezia. GENITOURINARY: No urgency. No frequency. No dysuria. No hematuria. No obstructive symptoms. No discharge. No pain. No significant abnormal bleeding. MUSCULOSKELETAL: No musculoskeletal pain; no joint swelling. Back pain. NEUROLOGICAL: Awake, alert, oriented to time, place and person. No headache. No neck pain. No syncope. No seizures. No dizziness. PSYCHIATRIC: Not anxious. No depression. No suicidal thoughts. No homicidal thoughts. SKIN: No rash. No lesions. No wounds. ENDOCRINE: No unexplained weight loss. No weight gain. HEMATOLOGIC/LYMPHATIC: No anemia. No purpura. No petechiae. No prolonged or excessive bleeding. No palpable lymph nodes. PHYSICAL EXAMINATION: GENERAL: The patient is awake, alert and oriented, lying in bed in no distress. VITAL SIGNS: Temperature 98.7 F, Pulse 81, Respiratory Rate 20, BP 90/44, Pulse Ox 98% HEENT: Head normocephalic, atraumatic. Eyes: Extraocular muscles are intact. Pupils are equal, round and reactive to light and accommodation. Ears: No lesions. Nose appeared normal. Throat: No exudate or erythema. NECK: Supple. No JVD, no carotid bruit. No lymphadenopathy or thyromegaly. LUNGS: Diminished breath sounds. Clear to auscultation. Percussion note normal. Chest symmetrical. HEART: S1, S2, no S3. No murmurs. No cyanosis or clubbing. No ascites. Pulses: Dorsalis pedis and posterior tibial pulses +1 to +2 both sides. ABDOMEN: Soft. Non-tender. Bowel sounds active. No CVA tenderness. No mass felt. EXTREMITIES: Trace pedal edema. Full range of motion of all extremities, equal. NEUROLOGIC: No focal deficit. Cranial nerves II through XII are grossly intact. No headache, no double vision or headache. SKIN: Not dry. Intact. Turgor-normal. LYMPHATIC: No palpable lymph nodes/no lymphedema. MUSCULOSKELETAL: Normal joints with no swelling. Muscle tone is normal. LAB REVIEW: 12/30/19 04:15 12/30/19 04:15 12/30/19 04:15: Sodium 130.0 L, Potassium 4.26, Chloride 96.4 L, Carbon Dioxide 32.5 H, Anion Gap 5.36, BUN 17.7 H, Creatinine 0.76, Estimated GFR (MDRD) 73.00, BUN/Creatinine Ratio 23.28, Glucose 89.0, Calcium 6.91 L, Total Bilirubin 0.43, AST 32.0, ALT 15.5, Alkaline Phosphatase 96.9 D, Total Protein 4.76 L, Albumin 2.40 L, Globulin 2.36, Albumin/Globulin Ratio 1.01 12/30/19 04:15: WBC 6.33, RBC 2.84 L, Hgb 9.1 L, Hct 28.3 L, MCV 99.6 H, MCH 32.0 H, MCHC 32.2, RDW Coeff of Visnhu 14.9 H, Plt Count 192, Immature Gran % (Auto) 0.6, Neut % (Auto) 75.4 H, Lymph % (Auto) 16.3, [place] % (Auto) 4.4, Eos % (Auto) 2.7, Baso % (Auto) 0.6, Neut # (Auto) 4.8, Lymph # (Auto) 1.0, [place] # (Auto) 0.3 L, Eos # (Auto) 0.2, Baso # (Auto) 0.0, Immature Gran # (Auto) 0.0 ASSESSMENT: Please see below. 1. UTI 2. Anemia 3. COPD 4. Generalized edema 5. Hypotension. PLAN: 1. Discontinue IV fluids after this bag 2. PT/OT for consult 3. Decreased Lopressor 12.5mg BID Plan and coordination of the patient's care discussed in the presence of [place] and nurse. SCRIBED BY: JEFF RENTERIA Varnish Supervisor scribed while in presence of service performed by Dr. Ac/Brigida Hanna APRN on 12/30/19 ([id number])
--- NOTE | 2019-12-30 09:50 | ECHO2D ---
Date of Exam: 12/28/2019 Ordering Physician: DR. MATTI CA Room #: 112 Reason for Echo: PULMONARY EMBOLISM, COPD, SOB M-Mode Normal Adult Results LV Dimensions Normal Adult Results AoV Opening excursions >1.6 >1.6 LVEDD-base- 3.5-5.8 3.7 Ao root dimensions 2.0-3.7 3.2 LVESD-base- 3.1-4.6 L. Atrium dimensions 1.9-3.8 4.3 Post. Wall thickness 0.8-1.1 1.1 IV septum (thickness) 0.7-1.2 1.2 Post. Wall excursion 0.72-1.3 NORMAL Septal motion NORMAL Systolic motion R. Ventricular cavity 1.5-2.0 3.0 LVEF 60% 53% Paradoxical septal wall motion NORMAL 2-D : 2-D M Mode Echocardiogram was performed using apical four chamber and left parasternal long and short axis views. Mitral and tricuspid valves appear to be normal. CALCIFIC AORTIC VALVE LEAFLET. Contractility of the left ventricle seems to be normal, so is the cavity size. ENLARGED LEFT ATRIAL AND RIGHT VENTRICLE CAVITIES. Aortic root appears to be normal. There is no pericardial effusion. There is no thrombus noted in the left ventricle or left atrial cavity. No mitral valve prolapse noted. M-MODE: MV: NORMAL AV: CALCIFIC AORTIC VALVE--GOOD SEPARATION TV: NORMAL PV: CHAMBER SIZE: ENLARGED RIGHT VENTRICLE AND LEFT ATRIAL CAVITY WALL MOTION: NORMAL PERICARDIUM: NORMAL INTERPRETATION: 1. CALCIFIC AORTIC VALVES--NO STENOSIS 2. BORDERLINE LEFT VENTRICULAR HYPERTROPHY WITH ENLARGED LEFT ATRIAL CAVITY 3. ENLARGED RIGHT VENTRICLE CAVITY 4. NORMAL LEFT VENTRICLE SIZE MTDD
--- NOTE | 2019-12-30 13:26 | PN ---
DATE OF SERVICE: 12/30/19 SUBJECTIVE: The patient was seen and examined with the nurse practitioner. The patient doesn't have any diarrhea today or last night. During her supper she was acting somewhat better. Cardiovascular status stable. TIME SPENT: More than 30 minutes. Plan and coordination of the patient's care discussed in the presence of nurse. JULIO
--- NOTE | 2019-12-30 16:30 | RS.PTINEVL ---
Subjective - Patient information Date of Evaluation: 12/30/19 Date of Arrival on Unit: 12/22/19 Admitted From:: Al[facility] ([facility]) Diagnosis: acute renal failure, UTI Usual Living Arrangement: Alf Living Arrangement Comments: [facility], prior to that was at home with family. pt required assist of 2 for transfers at [facility]. Medical History: Hypertension, COPD, Arthritis Medical History Comments:: PE, pancreatitis, DJD, renal mass LATEX ALLERGY?: No Surgical History: Cholecystectomy, Hysterectomy Medications: see chart Subjective Information/ Patient Comments:: pt states that she doesn't feel like moving. States that she hurts all over. pt moans and keeps eyes closed most of treatment unless encouraged to open them. pt responds to therapy with encouragement and is agreeable to try. - Level of function Prior to this admission, the patient could do the following:: Partially Dependent Ambulation Abilities prior to this admission: pt was requiring [facility] 2 [facility]. Current Level of Function: Dependent Current Equipment Used at Home: OXYGEN, W/C, WALKER Interventions - Objective Patient Orientation: Person, Place Current Interventions: IV's, Oxygen, Telemetry, Last Catheter Observation: pt in contact precautions due to VRE Range of Motion - ROM Right Upper Extremity AROM: WFL's Left Upper Extremity AROM: WFL's Right Lower Extremity AROM: WFL's Left Lower Extremity AROM: WFL's Muscle Strength - Muscle Strength Right Upper Extremity Strength: Severe Weakness (shld flex 2+/5, elbow flex/ext 3-/5, decreased hand outside cutter) Left Upper Extremity Strength: Severe Weakness (shld flex 2+/5, elbow flex/ext 3-/5, decreased hand outside cutter) Right Lower Extremity Strength: Severe Weakness (hip flex 2/5, knee flex/ext2/5, ankle DF/PF 2-/5) Left Lower Extremity Strength: Severe Weakness (hip flex 2/5, knee flex/ext2/5, ankle DF/PF 2-/5) Sensation - Sensation Right Upper Extremity Sensation: Intact/Normal Left Upper Extremity Sensation: Intact/Normal Right Lower Extremity Sensation: Intact/Normal Left Lower Extremity Sensation: Intact/Normal Palpation Palpation Findings: Tenderness Comments:: tenderness to touch in BUE and LE. Balance - Sitting Balance and Reactions Static Sitting Balance: Fair Dynamic Sitting Balance: Poor Sitting Equilibrium Reactions: Delayed Left, Delayed Right Sitting Protective Reactions: Delayed Left, Delayed Right - Standing Balance and Reactions Static Standing Balance: Poor Dynamic Standing Balance: Poor Standing Equilibrium Reactions: Absent Left, Absent Right Standing Protective Reactions: Absent Left, Absent Right - Comments Balance Assessment Comments: pt unable to maintain standing without max of 2 Functional Mobility - Bed Mobility Rolling R/L: Mod Assist, 2 person assist Scooting: Max Assist, 2 person assist Supine to Sit: Mod Assist, Max Assist, 2 person assist Sit to Supine: Max Assist, 2 person assist Comments:: pt sat at side of bed x 5-10 mins. pt able to maintain sitting unsupported for approx 1-2 mins at a time without challenges to balance. - Transfers Sit to Stand: Max Assist, 2 person assist Stand to Sit: Max Assist, 2 person assist Comments:: sit to stand x 30 secs with max of 2 unable to stand fully - Safety Awareness Safety Awareness: Poor CARRI INDEX SCORE: n/a Ambulation - Ambulation Ambulation Comments: pt unable to amb Treatment time - Time with patient Length of Evaluation: 27 Total treatment time: 34 Patient Education - Education Patient Education: Education of Plan of Care Teaching Recipient: Patient Teaching Methods: Discussion Assessment - Assessment Problem List:: Decreased level of function, Requires training/education, Decreased safety/Risk of falls, Weakness, Pain limits previous level of function Rehab Potential: Fair Further Therapy Indicated?: Yes Candidate for Swing Bed for Therapy Services?: Feel pt would not be able to tolerate the amount of therapy to be skilled for swing bed. Evaluation Complexity: HISTORY: Medium, EXAM OF BODY SYSTEMS: Medium, CLINICAL PRESENTATION: Medium, CLINICAL DECISION MAKING: Medium Patient's Goal(s): pt just wants to feel better. Short Term Goals GOAL #1: Rolling with mod x 1 Goal to be met by: 01/02/20 GOAL #2: Sup to/from sit mod x 1-2 Goal to be met by: 01/02/20 GOAL #3: Sit to/from stand mod x 2 Goal to be met by: 01/02/20 GOAL #4: Bed to/from chair mod x 2 Goal to be met by: 01/02/20 GOAL #5: pt able to sit unsupported x 1 min with min challenges to balance Goal to be met by: 01/02/20 Longterm Goals GOAL #1: Rolling min x 1 Goal to be met by: 01/05/20 GOAL #2: Sup to /from sit min to mod x 1, sit to/from stand mod x 1 Goal to be met by: 01/05/20 GOAL #3: pt amb with rwx 20ft with mod x 2 Goal to be met by: 01/05/20 Plan Plan of Care: Therapeutic EX, Therapeutic Activity Other:: progress to gait training Frequency of Treatment: 1-2 X day, as tolerated Duration of Treatment: 5 days Anticipated Discharge Destination: possible LTC Treatment Diagnosis (ICD 10 Codes): weakness M62.81. balance impaired R 26.81 Has the Physician been added for Co-signature?: Yes
[2019-12-30] MEDS: COLACE PO SCH (20:48)
[2019-12-30] MEDS: SENNA PO SCH (20:49)
[2019-12-31 04:43] LABS: HEMATOCRIT 28.6 % (37.0-47.0)
[2019-12-31] MEDS: VENTOLIN HFA (PER PUFF-WITH SPACER) IH SCH ×3 (04:44→19:25)
[2019-12-31] MEDS: FLAGYL 500 MG/100 ML 500 MG/100 ML BAG IV SCH ×3 (04:57→20:45)
[2019-12-31] MEDS: PRILOSEC PO SCH (06:14)
--- NOTE | 2019-12-31 08:42 | PN ---
DATE OF SERVICE: 12/26/19 SUBJECTIVE: 79-year-old white female hospitalized with UTI and swelling of the extremities. Her condition has steadily improved. Her main problem is the back pain. She is unable to get up and walk around. Her breathing and cardiovascular status is stable. The patient is on Linezolid for urinary tract infection. Extremity swelling is decreasing. PHYSICAL EXAMINATION: VITAL SIGNS: Temperature 97.8, pulse 85, respiratory rate 20, BP 112/65, pulse ox 99%. HEENT: Head normocephalic, atraumatic. Eyes: Extraocular muscles are intact. Pupils are equal, round and reactive to light and accommodation. Ears: No lesions. Nose appeared normal. Throat: No exudate or erythema. NECK: Supple. No JVD, no carotid bruit. No lymphadenopathy or thyromegaly. LUNGS: Decreased breath sounds. Clear to auscultation. Percussion note normal. Chest symmetrical. HEART: S1, S2, no S3. No murmurs. No cyanosis or clubbing. No ascites. Pulses: Dorsalis pedis and posterior tibial pulses +1 to +2 bilaterally. ABDOMEN: Soft. Nontender. Bowel sounds active. No CVA tenderness. No mass felt. EXTREMITIES: No edema. Full range of motion of all extremities, equal. NEUROLOGIC: No focal deficit. Cranial nerves II through XII are grossly intact. No headache, no double vision or headache. SKIN: Not dry. Intact. Turgor - normal. LYMPHATIC: No palpable lymph nodes/no lymphedema. MUSCULOSKELETAL: Normal joints with no swelling. Muscle tone is normal. LABS: Hemoglobin 10.3, hematocrit 32, WBC 7,000, normal differential. Creatinine 0.7, BUN 16, potassium 4.9. GFR 75 cc/min. Glucose noted 67 on the lower side. ASSESSMENT/PLAN: 1. UTI SEEMS TO BE UNDER CONTROL. 2. EXTREMITY SWELLING MUCH LESS. 3. ORAL INTAKE IS POOR. THE PATIENT IS DROWSY AT TIMES. 4. SAM CATHETER UNABLE TO REMOVE. THE PATIENT HAS CHRONIC URINARY RETENTION WITH ORGANISM SHE HAS IN THE URINARY TRACT, WOULD BE VERY EASY TO CONTAIN THAT IF SHE HAS A SAM CATHETER. IN ANY CASE, SHE IS LIKELY SET UP FOR DECUBITUS ULCER WITH HER NOT HAVING MUCH MOBILITY AND NUTRITIONAL STATUS SEEMS TO BE GETTING WORSE. IN ANY CASE WE WILL CONTINUE TO GIVE HER HYDROCODONE T.I.D. ALONG WITH APIXABAN FOR PULMONARY EMBOLISM. CONTINUE ZYVOX WITH PRIMAXIN, WHICH IS LINEZOLID. 5. CARDIOVASCULAR STATUS STABLE. TIME SPENT: More than 30 minutes. Plan and coordination of the patient's care discussed in the presence of nurse. JULIO
--- NOTE | 2019-12-31 08:47 | PN ---
DATE OF SERVICE: 12/27/19 SUBJECTIVE: 79-year-old white female hospitalized with UTI, extremity swelling and weakness. The patient's condition seems to be stabilizing. Overall status seems to be declining with the patient's condition being bedridden from moderate to severe back pain along with other multiple medical problems. Recently she had pulmonary embolism, has been on Apixaban with no complications from any of the medications. Without pain medications she seems to be moaning with pain. PHYSICAL EXAMINATION: VITAL SIGNS: Temperature 98, pulse 93, respiratory rate 18, BP 100/50, pulse ox 99%. HEENT: Head normocephalic, atraumatic. Eyes: Extraocular muscles are intact. Pupils are equal, round and reactive to light and accommodation. Ears: No lesions. Nose appeared normal. Throat: No exudate or erythema. NECK: Supple. No JVD, no carotid bruit. No lymphadenopathy or thyromegaly. LUNGS: Decreased breath sounds but clear to auscultation. Percussion note normal. Chest symmetrical. HEART: S1, S2, no S3. No murmurs. No cyanosis or clubbing. No ascites. Pulses: Dorsalis pedis and posterior tibial pulses +1 to +2 bilaterally. ABDOMEN: Soft. Nontender. Bowel sounds active. No CVA tenderness. No mass felt. EXTREMITIES: No edema. Full range of motion of all extremities, equal. NEUROLOGIC: No focal deficit. Cranial nerves II through XII are grossly intact. No headache, no double vision or headache. SKIN: Not dry. Intact. Turgor - normal. LYMPHATIC: No palpable lymph nodes/no lymphedema. MUSCULOSKELETAL: Normal joints with no swelling. Muscle tone is normal. LABS: Hemoglobin 10, hematocrit 31, WBC 7,100, normal differential. Creatinine 0.7, BUN 13, potassium 4.7. ASSESSMENT: 1. UTI seems to be under control with Linezolid, combination of Zyvox and Primaxin. PLAN: 1. Continue all the medications. Unable to get the Last catheter out for now. CONDITION: Stable. TIME SPENT: More than 30 minutes. Plan and coordination of the patient's care discussed in the presence of nurse. JULIO
--- NOTE | 2019-12-31 08:56 | PN ---
DATE OF SERVICE: 12/28/19 SUBJECTIVE: 79-year-old white female hospitalized with UTI and extremity swelling. The patient has been on Linezolid. The patient has Enterobacter. Leg swelling has returned so will give 20 mg IV Lasix. The patient has borderline systolic blood pressure. Will cut down the Lisinopril to 5 mg and Lopressor 25 twice a day. Will resume it because of sinus tachycardia yesterday. The patient did not have any other findings, no sweating, no shortness of breath, no chest pain, practically she was unchanged. She was given one dose of Lopressor to control her heart rate. This morning her heart rate is 70/min. The EKG was examined by me which showed sinus tach with rate of 115. No acute changes were noted. The patient is very laid back, doesn't want to get up, moans at times with the back problems. She says "that is the way I have been and I have no desire to get up and walk; there is no reason for me to get up and walk". With help she walks on her own. REVIEW OF SYSTEMS: CONSTITUTIONAL: No night sweats. No fatigue, malaise, lethargy. No fever or chills. HEENT: Eyes: No visual changes. No eye pain. No eye discharge. ENT: No runny nose. No epistaxis. No sinus pain. No sore throat. No odynophagia. No congestion. RESPIRATORY: No cough, no congestion. No hemoptysis. No shortness of breath. CARDIOVASCULAR: No angina symptoms. No CHF symptoms. No atypical chest pain for CAD. No palpitations. No PND. No orthopnea. GASTROINTESTINAL: Appetite is practically normal. No abdominal pain. No nausea or vomiting. No diarrhea or constipation. No hematemesis. No hematochezia. GENITOURINARY: No urgency. No frequency. No dysuria. No hematuria. No obstructive symptoms. No discharge. No pain. No significant abnormal bleeding. MUSCULOSKELETAL: No musculoskeletal pain; no joint swelling. NEUROLOGICAL: No headache. No neck pain. No syncope. No seizures. No dizziness. PSYCHIATRIC: Not anxious. No depression. No suicidal thoughts. No homicidal thoughts. SKIN: No rash. No lesions. No wounds. ENDOCRINE: No unexplained weight loss. No weight gain. HEMATOLOGIC/LYMPHATIC: No anemia. No purpura. No petechiae. No prolonged or excessive bleeding. No palpable lymph nodes. PHYSICAL EXAMINATION: VITAL SIGNS: Temperature 97.9, pulse 68, respiratory rate 20, BP 100 systolic. Pulse ox 100% on 2L. HEENT: Head normocephalic, atraumatic. Eyes: Extraocular muscles are intact. Pupils are equal, round and reactive to light and accommodation. Ears: No lesions. Nose appeared normal. Throat: No exudate or erythema. NECK: Supple. No JVD, no carotid bruit. No lymphadenopathy or thyromegaly. LUNGS: Clear to auscultation. Percussion note normal. Chest symmetrical. HEART: S1, S2, no S3. No murmurs. No cyanosis or clubbing. No ascites. Pulses: Dorsalis pedis and posterior tibial pulses +1 to +2 bilaterally. ABDOMEN: Soft. Nontender. Bowel sounds active. No CVA tenderness. No mass felt. EXTREMITIES: The patient had +2 pitting edema. Full range of motion of all extremities, equal. NEUROLOGIC: No focal deficit. Cranial nerves II through XII are grossly intact. No headache, no double vision or headache. SKIN: Not dry. Intact. Turgor - normal. LYMPHATIC: No palpable lymph nodes/no lymphedema. MUSCULOSKELETAL: Normal joints with no swelling. Muscle tone is normal. LABS: Hemoglobin 9.5, hematocrit 30, WBC 5,000, normal differential. Creatinine 0.7, BUN 13, potassium 4.4. ASSESSMENT: 1. Leg swelling seems to have come back. Will give Lasix IV and elevate the legs. 2. The patient's UTI seems to be under control with Enterobactor on Linezolid. 3. Will add Lexapro as the patient seems to be depressed and cut down Lisinopril to 5 mg and Lopressor 25 twice a day. The patient had an echocardiogram done which showed normal LV contractility, calcific aortic valves noted. No stenosis. 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 TIME SPENT: More than 30 minutes. Plan and coordination of the patient's care discussed in the presence of nurse. JULIO
[2019-12-31] MEDS: ZYVOX 600 MG/300 ML IV SCH ×2 (09:13→22:12)
[2019-12-31] MEDS: ZESTRIL PO SCH (09:13)
[2019-12-31] MEDS: MYRBETRIQ PO SCH (09:13)
[2019-12-31] MEDS: NORCO 5-325 PO SCH ×2 (09:14→20:47)
[2019-12-31] MEDS: LOPRESSOR PO SCH ×2 (09:14→20:46)
[2019-12-31] MEDS: LEXAPRO PO SCH (09:14)
[2019-12-31] MEDS: ADVAIR 250-50 DISKUS IH SCH ×2 (09:15→20:47)
[2019-12-31] MEDS: ELIQUIS PO SCH ×2 (09:15→20:48)
[2019-12-31] MEDS: ACTIGALL PO SCH (09:28)
[2019-12-31] MEDS: CALMOSEPTINE OINTMENT TP PRN ×3 (10:15→16:00)
[2019-12-31] MEDS ORDERED: LASIX IVP STA (12:52)
[2019-12-31] MEDS: COLACE PO SCH (21:03)
[2019-12-31] MEDS: SENNA PO SCH (21:04)
[2020-01-01] MEDS: TYLENOL PO PRN (01:40)
[2020-01-01] MEDS: VENTOLIN HFA (PER PUFF-WITH SPACER) IH SCH ×2 (04:50→13:50)
[2020-01-01] MEDS: FLAGYL 500 MG/100 ML 500 MG/100 ML BAG IV SCH (05:20)
[2020-01-01 05:25] LABS: HEMATOCRIT 29.1 % (37.0-47.0)
[2020-01-01] MEDS: PRILOSEC PO SCH (06:00)
[2020-01-01 06:04] VITALS: BP 116/63; TEMP 98.8
[2020-01-01] MEDS: ZESTRIL PO SCH (08:31)
[2020-01-01] MEDS: MYRBETRIQ PO SCH (08:31)
[2020-01-01] MEDS: LEXAPRO PO SCH (08:31)
[2020-01-01] MEDS: NORCO 5-325 PO SCH (08:31)
[2020-01-01] MEDS: LOPRESSOR PO SCH (08:32)
[2020-01-01] MEDS: ZYVOX 600 MG/300 ML IV SCH (08:33)
[2020-01-01] MEDS: ELIQUIS PO SCH (08:34)
[2020-01-01] MEDS: ADVAIR 250-50 DISKUS IH SCH (08:34)
--- NOTE | 2020-01-01 09:25 | PCM.PROG ---
Attending Provider: ATTENDING PROVIDER: Dr. MATTI AC This patient is seen with Brigida Hanna, Nurse Practitioner. DATE OF SERVICE: 01/01/20 SUBJECTIVE: This 79 year old /WHITE F was hospitalized 12/22/19. The patient is [facility] to [facility] to [facility]. She has been refusing her meals and therapy here in the hospital. Her condition has reached a point where there is no room for improvement. The patient states she is tired and ready to quit doing this. At this point the plan is to discharge to [facility] with palliative care. She will complete the course of antibiotics but we will discuss possible Hospice referral once she gets there. REVIEW OF SYSTEMS: CONSTITUTIONAL: No night sweats. Fatigue. No fever or chills. Weakness. HEENT: Eyes: No visual changes. No eye pain. No eye discharge. ENT: No runny nose. No epistaxis. No sinus pain. No odynophagia. No congestion. RESPIRATORY: No cough, no congestion. No hemoptysis. Shortness of breath. CARDIOVASCULAR: No angina symptoms. No CHF symptoms. No atypical chest pain for CAD. No palpitations. No orthopnea.. GASTROINTESTINAL: No abdominal pain. No nausea or vomiting. No diarrhea or constipation. No hematemesis. No hematochezia. GENITOURINARY: Urinary retention. No urgency. No frequency. No dysuria. No hem aturia. No obstructive symptoms. No discharge. No pain. No significant abnormal bleeding. MUSCULOSKELETAL: No musculoskeletal pain; no joint swelling. Chronic back pain. Edema. NEUROLOGICAL: Awake, alert, oriented to time, place and person. No headache. No neck pain. No syncope. No seizures. No dizziness. PSYCHIATRIC: Not anxious. No depression. No suicidal thoughts. No homicidal thoughts. SKIN: No rash. No lesions. No wounds. ENDOCRINE: No unexplained weight loss. No weight gain. HEMATOLOGIC/LYMPHATIC: Anemia. No purpura. No petechiae. No prolonged or excessive bleeding. No palpable lymph nodes. PHYSICAL EXAMINATION: GENERAL: The patient is awake, alert and oriented, lying in bed in no distress. VITAL SIGNS: Temperature 98.8 F, Pulse 95, Respiratory Rate 22, BP 116/63, Pulse Ox 96% HEENT: Head normocephalic, atraumatic. Eyes: Extraocular muscles are intact. Pupils are equal, round and reactive to light and accommodation. Ears: No lesions. Nose appeared normal. Throat: No exudate or erythema. NECK: Supple. No JVD, no carotid bruit. No lymphadenopathy or thyromegaly. LUNGS: Severe diminished breath sounds. Clear to auscultation. Percussion note normal. Chest symmetrical. HEART: S1, S2, no S3. No murmurs. No cyanosis or clubbing. No ascites. Pulses: Dorsalis pedis and posterior tibial pulses +1 to +2 both sides. ABDOMEN: Soft. Non-tender. Bowel sounds active. No CVA tenderness. No mass felt. EXTREMITIES: Improved generalized edema. Full range of motion of all extremities, equal. NEUROLOGIC: No focal deficit. Cranial nerves II through XII are grossly intact. No headache, no double vision or headache. SKIN: Not dry. Intact. Turgor-normal. LYMPHATIC: No palpable lymph nodes/no lymphedema. MUSCULOSKELETAL: Normal joints with no swelling. Muscle tone is normal. LAB REVIEW: 01/01/20 04:45 01/01/20 04:45 01/01/20 04:45: Sodium 127.6 L, Potassium 4.29, Chloride 91.5 L, Carbon Dioxide 31.9 H, Anion Gap 8.49, BUN 14.9, Creatinine 0.81, Estimated GFR (MDRD) 68.00, BUN/Creatinine Ratio 18.39, Glucose 83.1, Calcium 6.82 L, Total Bilirubin 0.70, AST 41.2 H, ALT 19.8, Alkaline Phosphatase 91.6, Total Protein 5.04 L, Albumin 2.62 L, Globulin 2.42, Albumin/Globulin Ratio 1.08 01/01/20 04:45: WBC 5.79, RBC 2.96 L, Hgb 9.5 L, Hct 29.1 L, MCV 98.3, MCH 32.1 H, MCHC 32.6, RDW Coeff of Vishnu 14.6, Plt Count 185, Immature Gran % (Auto) 0.5, Neut % (Auto) 76.7 H, Lymph % (Auto) 16.6, [place] % (Auto) 4.1, Eos % (Auto) 1.2, Baso % (Auto) 0.9, Neut # (Auto) 4.4, Lymph # (Auto) 1.0, [place] # (Auto) 0.2 L, Eos # (Auto) 0.1, Baso # (Auto) 0.1, Immature Gran # (Auto) 0.0 ASSESSMENT: Please see below. 1. UTI, positive Enterococcus Faecium. Positive VRE 2. Anemia 3. Severe COPD, oxygen dependant 4. Generalized weakness. PLAN: 1. Discharge to [facility] 2. Continue antibiotic Zyvox for three more days 3. Keep Catheter in place 4. No need to repeat U/A 5. Palliative care as agreed upon with patient. 6. Will discuss Hospice care with [facility] Plan and coordination of the patient's care discussed in the presence of [employer] and nurse. SCRIBED BY: JEFF RENTERIA Wordpress Developer scribed while in presence of service performed by Dr. Ac/Brigida Hanna APRN on 01/01/20 ([id number])
--- NOTE | 2020-01-01 10:52 | PN ---
DATE OF SERVICE: 12/31/2019 SUBJECTIVE: 79 year old white female hospitalized with UTI and extremity swelling. The patient's condition seemed to have improve in the beginning. UTI symptoms have resolved but the patient is depressed and she is being started on Lexapro. The patient practically has given. She says that at home that she has not been able to take care of herself and she would like to go to the senior living. She was in the senior living for a while. REVIEW OF SYSTEMS: CONSTITUTIONAL: No night sweats. No fatigue, malaise, lethargy. No fever or chills. HEENT: Eyes: No visual changes. No eye pain. No eye discharge. ENT: No runny nose. No epistaxis. No sinus pain. No sore throat. No odynophagia. No congestion. RESPIRATORY: No cough, no congestion. No hemoptysis. No shortness of breath. CARDIOVASCULAR: No angina symptoms. No CHF symptoms. No atypical chest pain for CAD. No palpitations. No PND. No orthopnea. GASTROINTESTINAL: No abdominal pain. No nausea or vomiting. No diarrhea or constipation. No hematemesis. No hematochezia. GENITOURINARY: No urgency. No frequency. No dysuria. No hematuria. No obstructive symptoms. No discharge. No pain. No significant abnormal bleeding. MUSCULOSKELETAL: No musculoskeletal pain; no joint swelling. Back pain. The patient is able to walk but she is refusing to cooperate or walk. NEUROLOGICAL: No headache. No neck pain. No syncope. No seizures. No dizziness. PSYCHIATRIC: Not anxious. No depression. No suicidal thoughts. No homicidal thoughts. SKIN: No rash. No lesions. No wounds. ENDOCRINE: No unexplained weight loss. No weight gain. HEMATOLOGIC/LYMPHATIC: No anemia. No purpura. No petechiae. No prolonged or excessive bleeding. No palpable lymph nodes. PHYSICAL EXAMINATION: VITAL SIGNS: Temperature 98.6, pulse 88, respiratory rate 16, blood pressure 124/62 and pulse ox 96%. HEENT: Head normocephalic, atraumatic. Eyes: Extraocular muscles are intact. Pupils are equal, round and reactive to light and accommodation. Ears: No lesions. Nose appeared normal. Throat: No exudate or erythema. NECK: Supple. No JVD, no carotid bruit. No lymphadenopathy or thyromegaly. LUNGS: Decreased breath sounds but clear to auscultation. Percussion note normal. Chest symmetrical. HEART: S1, S2, no S3. No murmurs. No cyanosis or clubbing. No ascites. Pulses: Dorsalis pedis and posterior tibial pulses +1 to +2 bilaterally. ABDOMEN: Soft. Nontender. Bowel sounds active. No CVA tenderness. No mass felt. EXTREMITIES: Edema both upper extremities and lower extremities. Full range of motion of all extremities, equal. NEUROLOGIC: No focal deficit. Cranial nerves II through XII are grossly intact. No headache, no double vision or headache. SKIN: Not dry. Intact. Turgor - normal. LYMPHATIC: No palpable lymph nodes/no lymphedema. MUSCULOSKELETAL: Normal joints with no swelling. Muscle tone is normal. LABS: Hgb 9.1, hct 28, WBC 6,000 normal differential, creatinine 0.6, BUN 15, potassium 4.3. ASSESSMENT: 1. UTI has resolved 2. Leg swelling persists, will give IV Lasix mostly the patient's leg swelling is from hypoproteinemia and hypoalbuminemia from poor nutrition. PLAN: 1. The patient is just not willing to eat. She is just practically given up. 2. The patient's is off Statin. We will discontinue Actigall and we will give 20mg IV Lasix. 3. The patient has agreed to be DNR. DNR has already been signed. The patient wants to go to the senior living so she is going to be discharged to the senior living. The patient is oriented to time, place and person. TIME SPENT: More than 30 minutes. Plan and coordination of the patient's care discussed in the presence of nurse. JULIO
[2020-01-01] MEDS ORDERED: TORADOL IVP STA (11:55)
--- NOTE | 2020-01-02 07:47 | CM.DICTOOL ---
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 HX: COPD WITH EXACERBATION, OXYGEN DEPENDENT PULMONARY EMBOLISM, NEW (OCTOBER) ON ELIQUIS HYPERTENSION DYSLIPIDEMIA PANCREATITIS OSTEOARTHRITIS, CERVICAL SPINE HEMATURIA LEFT RENAL MASS AND BLADDER THICKENING PER CT, 2018 (REFUSES UROLOGY CONSULT) URINARY RETENTION, SAM CATHETER 12/03/2019 PLACEMENT, CHANGED 01/01/2020 RUL PULMONARY NODULE- REFUSES TREATMENT OR REFERRAL FOR EVAL PROCEDURES: COLONOSCOPY CHOLECYSTECTOMY LAST VITALS Temp Pulse Resp BP Pulse Ox 98.8 F 95 H 22 116/63 96 01/01/20 05:58 01/01/20 05:58 01/01/20 05:58 01/01/20 05:58 01/01/20 05:58 TAKE THESE MEDICATIONS AT HOME Hydrocodone Bitart/Acetaminophen ([place] 5-325) 1 tab PO BID [facility] Last Admin: 01/01/20 08:31 Dose: 1 tab Documented by: Albuterol Sulfate (Ventolin Hfa (Per Puff-With Spacer)) 2 puff IH RTTID [facility] Last Admin: 01/01/20 04:50 Dose: 2 puff Documented by: Apixaban (Eliquis) 5 mg PO BID [facility] Last Admin: 01/01/20 08:34 Dose: 5 mg Documented by: Calamine/Phenol (Calmoseptine Ointment) 1 applic TP PRN PRN PRN Reason: SKIN BREAKDOWN PREVENTION Last Admin: 12/31/19 16:00 Dose: 1 applic Documented by: Docusate Sodium (Colace) 100 mg PO BEDTIME [facility] Last Admin: 12/31/19 21:03 Dose: Not Given Documented by: Escitalopram Oxalate (Lexapro) 10 mg PO DAILY [facility] Last Admin: 01/01/20 08:31 Dose: 10 mg Documented by: Linezolid (Zyvox 600 Mg/300 Ml Premix) 600 mg in 300 mls @ 150 mls/hr IV Q12HR [facility] START 2100 01/01/2020 X 6 DOSES THEN STOP Last Admin: 01/01/20 08:33 Dose: 150 mls/hr Documented by: Lisinopril (Zestril) 5 mg PO DAILY [facility] Last Admin: 01/01/20 08:31 Dose: 5 mg Documented by: Metoprolol Tartrate (Lopressor) 12.5 mg PO BID [facility] Last Admin: 01/01/20 08:32 Dose: 12.5 mg Documented by: Mirabegron (Myrbetriq) 50 mg PO DAILY [facility] Last Admin: 01/01/20 08:31 Dose: 50 mg Documented by: Omeprazole (Prilosec) 20 mg PO QDAC [facility] Last Admin: 01/01/20 06:00 Dose: 20 mg Documented by: Fluticasone/Salmeterol (Advair 250-50 Diskus) 1 puff IH BID [facility] Last Admin: 01/01/20 08:34 Dose: 1 puff Documented by: Sennosides (Senna) 8.6 mg PO BEDTIME [facility] Last Admin: 12/31/19 21:04 Dose: Not Given Documented by: Sodium Chloride (Saline Flush) 1 syr IVF PRN PRN PRN Reason: Keep vein open Last Admin: 12/31/19 14:57 Dose: 1 syr ALLERGIES No Known Allergies Allergy (Verified 12/22/19 12:38) DISCONTINUED MEDICATIONS Lisinopril/HCTZ (Zestoretic ) Simvastatin (Zocor) Ursodiol (Actigall) NEW PRESCRIPTIONS: ZYVOX 600 MG IV X 6 MORE DOSES ALBUTEROL HFA WITH SPACER 2 PUFFS BID CALMOSEPTINE OINTMENT TO TOPICAL TO COCCYX AND SURROUNDING SKIN PRN NORCO 5/325 MG PO BID LEXAPRO 10 MG PO DAILY SODIUM CHLORIDE IV FLUSH 10 ML Q 8 HRS AND PRN METOPROLOL TARTRATE 12.5 MG PO Q 12 HOURS - ( CHANGED) LISINOPRIL 5 MG PO DAILY- ( CHANGED) SMOKING: NON- APPLICABLE DISEASE SPECIFIC EDUCATION: DEGENERATIVE SPINE UTI ANEMIA SEVERE COPD EDEMA LAB REVIEW: 01/01/20 04:45 01/01/20 04:45 01/01/20 04:45: Sodium 127.6 L, Potassium 4.29, Chloride 91.5 L, Carbon Dioxide 31.9 H, Anion Gap 8.49, BUN 14.9, Creatinine 0.81, Estimated GFR (MDRD) 68.00, BUN/Creatinine Ratio 18.39, Glucose 83.1, Calcium 6.82 L, Total Bilirubin 0.70, AST 41.2 H, ALT 19.8, Alkaline Phosphatase 91.6, Total Protein 5.04 L, Albumin 2.62 L, Globulin 2.42, Albumin/Globulin Ratio 1.08 01/01/20 04:45: WBC 5.79, RBC 2.96 L, Hgb 9.5 L, Hct 29.1 L, MCV 98.3, MCH 32.1 H, MCHC 32.6, RDW Coeff of Vishnu 14.6, Plt Count 185, Immature Gran % (Auto) 0.5, Neut % (Auto) 76.7 H, Lymph % (Auto) 16.6, [place] % (Auto) 4.1, Eos % (Auto) 1.2, Baso % (Auto) 0.9, Neut # (Auto) 4.4, Lymph # (Auto) 1.0, [place] # (Auto) 0.2 L, Eos # (Auto) 0.1, Baso # (Auto) 0.1, Immature Gran # (Auto) 0.0 PLAN: DISCHARGE TODAY, 01/01/2020, TO [facility] FOR PALLIATIVE CARE ACTIVITY: TURN AND REPOSITION EVERY 2 HOURS. UP IN CHAIR IF ABLE AND TOLERATED FOLLOW FACILITY PROTOCOL FOR PALLIATIVE CARE ELEVATE ARMS ON PILLOWS TO PREVENT/REDUCE EDEMA ELEVATE LOWER EXTS OXYGEN 2 L/M PER N/C CONTINUOS DIET: REGULAR WITH BOOST SUPPLEMENT WITH EACH MEAL SPECIAL ORDERS: NO LABS FOR NOW DO NOT REMOVE CATHETER DO NOT PERFORM U/A HOLD COLACE AND SENNA IF LOOSE STOOLS FOLLOW-UP: DR. AC/ ZACARIAS CHRISTINE APRN/ KARINA HAN APRN ON ROUNDS CODE STATUS: DO NOT RESUSCITATE MRS. GAYTAN REMAINS ALERT AND ORIENTED X4. WANTING TO STAY IN BED , EYES CLOSED AND QUIET. ONCE SOMEONE ENTERS ROOM SHE STARTS MOANING AND WILL VERBALIZE APPROPRIATELY. REPORTS BACK PAIN, NORCO HELPS AND AT TIMES SHE ASK TO BE REPOSITIONED. SHE HAS BEEN REFUSING PT LAST FEW DAYS. WILL PERFORM ROM. FEW DAYS AGO SHE DID GET UP, STOOD WITH MAXIMUM ASSIST OF TWO. SHE STATES SHE CANNOT TOLERATE SITTING UP AND REFUSES TO ATTEMPT.COCCYX WITH REDNESS AND SLIGHTLY DENU DED. BILATERAL ARMS WITH EDEMA AND WEEPING AT TIMES, LT NOT BAD. RT LOWER EXTREMITY WITH + 2 EDEMA, LT WITH TRACE TO FOOT. NUTRITIONAL AND FLUID INTAKE POOR SHE STATES SHE DOES NOT WANT ANYTHING. SAM CATHETER IN PLACE AND DRAINING CLEAR TEA COLORED RETURN. INCONTINENT OF BOWELS. LAST BM 12/31/2019 THAT WAS LOOSE AND BROWN. FAMILY ACCEPTING OF THE PALLIATIVE CARE AND GOING TO [facility] THAT MRS GAYTAN AGREED. SAM CATHETER CHANGED TODAY 01/01/2020 PRIOR TO DISCHARGE. MD ZACARIAS DURAN, FIXED INTEREST DEALERTila HAN, FIXED INTEREST DEALER
--- NOTE | 2020-01-02 09:23 | PN ---
DATE OF SERVICE: 01/01/2020 SUBJECTIVE: The patient was seen and examined with the Nurse Practitioner. The patient is ready to be discharged. She has practically given up. She wants to [facility] to the [facility]. The patient is going to be palliative care and the family is agreeable. She is oriented to time, place and person. She has generalized swelling from hypoproteinemia. CONDITION: Stable PROGNOSIS: Poor TIME SPENT: More than 30 minutes. Plan and coordination of the patient's care discussed in the presence of nurse. JULIO
--- NOTE | 2020-01-02 09:24 | PN ---
12/22/2019: Level 5 12/23/2019: Intermediate 12/24/2019: Intermediate 12/25/2019: Intermediate 12/26/2019: Intermediate 12/27/2019: Intermediate 12/28/2019: Intermediate 12/29/2019: Intermediate 12/30/2019: Intermediate 12/31/2019: Intermediate 01/01/2020: D as in discharge MTDD
--- NOTE | 2020-01-02 10:59 | DS ---
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 HISTORY OF: COPD WITH EXACERBATION, OXYGEN DEPENDENT PULMONARY EMBOLISM, NEW (OCTOBER) ON ELIQUIS HYPERTENSION DYSLIPIDEMIA PANCREATITIS OSTEOARTHRITIS, CERVICAL SPINE HEMATURIA LEFT RENAL MASS AND BLADDER THICKENING PER CT, 2018 (REFUSES UROLOGY CONSULT) URINARY RETENTION, SAM CATHETER 12/03/2019 PLACEMENT, CHANGED 01/01/2020 RUL PULMONARY NODULE- REFUSES TREATMENT OR REFERRAL FOR EVAL PROCEDURES: COLONOSCOPY CHOLECYSTECTOMY LAST VITALS: Temp Pulse Resp BP Pulse Ox 98.8 F 95 H 22 116/63 96 01/01/20 05:58 01/01/20 05:58 01/01/20 05:58 01/01/20 05:58 01/01/20 05:58 DISCHARGE INSTRUCTIONS: DISCHARGE TODAY, 01/01/2020, TO [facility] FOR PALLI[facility]IVE CARE. SPECIAL ORDERS: NO LABS FOR NOW DO NOT REMOVE CATHETER, DO NOT PERFORM U/A, HOLD COLACE AND SENNA IF LOOSE STOOLS. MD FOLLOW-UP: DR. AC/ ZACARIAS CHRISTINE APRN/ KARINA HAN APRN ON ROUNDS. CODE STATUS: DO NOT RESUSCITATE. TAKE THESE MEDICATIONS AT HOME: Hydrocodone Bitart/Acetaminophen ([place] 5-325) 1 tab PO BID [facility] Last Admin: 01/01/20 08:31 Dose: 1 tab Documented by: Albuterol Sulfate (Ventolin Hfa (Per Puff-With Spacer)) 2 puff IH RTTID [facility] Last Admin: 01/01/20 04:50 Dose: 2 puff Documented by: Apixaban (Eliquis) 5 mg PO BID [facility] Last Admin: 01/01/20 08:34 Dose: 5 mg Documented by: Calamine/Phenol (Calmoseptine Ointment) 1 applic TP PRN PRN PRN Reason: SKIN BREAKDOWN PREVENTION Last Admin: 12/31/19 16:00 Dose: 1 applic Documented by: Docusate Sodium (Colace) 100 mg PO BEDTIME [facility] Last Admin: 12/31/19 21:03 Dose: Not Given Documented by: Escitalopram Oxalate (Lexapro) 10 mg PO DAILY [facility] Last Admin: 01/01/20 08:31 Dose: 10 mg Documented by: Linezolid (Zyvox 600 Mg/300 Ml Premix) 600 mg in 300 mls @ 150 mls/hr IV Q12HR [facility] START 2100 01/01/2020 X 6 DOSES THEN STOP Last Admin: 01/01/20 08:33 Dose: 150 mls/hr Documented by: Lisinopril (Zestril) 5 mg PO DAILY [facility] Last Admin: 01/01/20 08:31 Dose: 5 mg Documented by: Metoprolol Tartrate (Lopressor) 12.5 mg PO BID [facility] Last Admin: 01/01/20 08:32 Dose: 12.5 mg Documented by: Mirabegron (Myrbetriq) 50 mg PO DAILY [facility] Last Admin: 01/01/20 08:31 Dose: 50 mg Documented by: Omeprazole (Prilosec) 20 mg PO QDAC [facility] Last Admin: 01/01/20 06:00 Dose: 20 mg Documented by: Fluticasone/Salmeterol (Advair 250-50 Diskus) 1 puff IH BID [facility] Last Admin: 01/01/20 08:34 Dose: 1 puff Documented by: Sennosides (Senna) 8.6 mg PO BEDTIME [facility] Last Admin: 12/31/19 21:04 Dose: Not Given Documented by: Sodium Chloride (Saline Flush) 1 syr IVF PRN PRN PRN Reason: Keep vein open Last Admin: 12/31/19 14:57 Dose: 1 syr ALLERGIES: No Known Allergies Allergy (Verified 12/22/19 12:38) DISCONTINUED MEDICATIONS: Lisinopril/HCTZ (Zestoretic ) Simvastatin (Zocor) Ursodiol (Actigall) NEW PRESCRIPTIONS: ZYVOX 600 MG IV X 6 MORE DOSES ALBUTEROL HFA WITH SPACER 2 PUFFS BID CALMOSEPTINE OINTMENT TO TOPICAL TO COCCYX AND SURROUNDING SKIN PRN NORCO 5/325 MG PO BID LEXAPRO 10 MG PO DAILY SODIUM CHLORIDE IV FLUSH 10 ML Q 8 HRS AND PRN METOPROLOL TARTRATE 12.5 MG PO Q 12 HOURS - ( CHANGED) LISINOPRIL 5 MG PO DAILY- ( CHANGED) SMOKING: NON- APPLICABLE DISEASE SPECIFIC EDUCATION: DEGENERATIVE SPINE UTI ANEMIA SEVERE COPD EDEMA LAB REVIEW: 01/01/20 04:45 01/01/20 04:45 01/01/20 04:45: Sodium 127.6 L, Potassium 4.29, Chloride 91.5 L, Carbon Dioxide 31.9 H, Anion Gap 8.49, BUN 14.9, Creatinine 0.81, Estimated GFR (MDRD) 68.00, BUN/Creatinine Ratio 18.39, Glucose 83.1, Calcium 6.82 L, Total Bilirubin 0.70, AST 41.2 H, ALT 19.8, Alkaline Phosphatase 91.6, Total Protein 5.04 L, Albumin 2.62 L, Globulin 2.42, Albumin/Globulin Ratio 1.08 01/01/20 04:45: WBC 5.79, RBC 2.96 L, Hgb 9.5 L, Hct 29.1 L, MCV 98.3, MCH 32.1 H, MCHC 32.6, RDW Coeff of Vishnu 14.6, Plt Count 185, Immature Gran % (Auto) 0.5, Neut % (Auto) 76.7 H, Lymph % (Auto) 16.6, [place] % (Auto) 4.1, Eos % (Auto) 1.2, Baso % (Auto) 0.9, Neut # (Auto) 4.4, Lymph # (Auto) 1.0, [place] # (Auto) 0.2 L, Eos # (Auto) 0.1, Baso # (Auto) 0.1, Immature Gran # (Auto) 0.0 ACTIVITY: TURN AND REPOSITION EVERY 2 HOURS. UP IN CHAIR IF ABLE AND TOLERATED FOLLOW FACILITY PROTOCOL FOR PALLIATIVE CARE ELEVATE ARMS ON PILLOWS TO PREVENT/REDUCE EDEMA ELEVATE LOWER EXTREMITIES OXYGEN 2 L/M PER N/C CONTINUOUS DIET: REGULAR WITH BOOST SUPPLEMENT WITH EACH MEAL HOSPITAL COURSE: This is a 79 white female who was brought to the emergency room with generalized weakness, hypotension, shortness of breath. On admission she was found to have increased renal function. She does have chronic kidney disease, anemia. ABG were initially abnormal. She had recently been at the custodial and then went home to stay with her daughter. She had a Sam Catheter in place upon admission due to urinary retention. In October she had been in the hospital in [place] after having a bilateral pulmonary embolism. She is still currently on Eliquis. U/A was abnormal in ER, culture was positive for enterococcus, positive for VRE. She was initially placed on Rocephin and this was then changed to Zyvox per culture and sensitivity. Of the course of past several days she has required IV fluids. She has had generalized edema on admission and was given. Lasix which helped the edema however then her kidney function along with Sodium went down. She did have to go addition IV fluids slow at 75cc an hour of normal saline. She is oxygen dependent. She is not eating very well. Yesterday she ate nothing at all. She was unable to get up in the chair or anything with therapy this morning. She has told me that she is tired, she is tired of being in the hospital and she does not want to do therapy, she is tired of living and she doesn't want to eat. There was a pulmonary nodule that was found along with a pulmonary emboli for which she refused a pulmonology or cardiothoracic surgeon consult. She refuses treatment even if it is malignant. She was also having severe back pain. We did a CT scan of her L spine which showed severe narrowing and degenerative disc. We placed her on [place] 5mg BID. She has three more days of Zyvox in order to complete treatment. We will leave the catheter in. Prior to being here whenever she was in the custodial initially they were in and out cathing her 5-6 times a day which I feel is not necessary. She would like to continue with palliative care. We will under got Hospice consult once she gets to the custodial. Again she has three days of Zyvox to complete the course. Her skin is starting to break down. She is not eating due to low protein levels I do not expect this to improve very much. She stable as of now but prognosis is poor given multiple medical conditions and her pain and unwillingness to complete therapy or eat. We will discharge her back to [facility]. She plans on staying there. Again we will consult Hospice. She is to finish her Zyvox. We will keep the catheter in place as well. We will send a prescription of [place] for pain control. This maybe needed to increase later. TIME SPENT: More than 60 minutes. CAMACHOD
== END 2020-01-01 15:40 | DRG 690 ==
LOC: ED 12:25 → MEDSURG B 13:49
PROVIDERS: ADMIT Internal Medicine; ATTEND Internal Medicine
DX: Z87.440 Personal history of urinary (tract) infections; M54.9 Dorsalgia, unspecified; E88.09 Other disorders of plasma-protein metabolism, not elsewhere classified; Z96.0 Presence of urogenital implants; E87.1 Hypo-osmolality and hyponatremia; Z51.81 Encounter for therapeutic drug level monitoring; R53.1 Weakness; Z87.19 Personal history of other diseases of the digestive system; N39.0 Urinary tract infection, site not specified; M47.812 Spondylosis without myelopathy or radiculopathy, cervical region; R63.0 Anorexia; M51.36 Other intervertebral disc degeneration, lumbar region; R91.1 Solitary pulmonary nodule; Z86.711 Personal history of pulmonary embolism; Z99.81 Dependence on supplemental oxygen; J44.9 Chronic obstructive pulmonary disease, unspecified; R19.7 Diarrhea, unspecified; R10.30 Lower abdominal pain, unspecified; R05 Cough; R60.1 Generalized edema; D64.9 Anemia, unspecified; R53.83 Other fatigue; Z79.899 Other long term (current) drug therapy; I10 Essential (primary) hypertension; I95.9 Hypotension, unspecified; R06.02 Shortness of breath; L03.113 Cellulitis of right upper limb; F32.9 Major depressive disorder, single episode, unspecified; R00.0 Tachycardia, unspecified; B95.2 Enterococcus as the cause of diseases classified elsewhere; N28.89 Other specified disorders of kidney and ureter; N18.9 Chronic kidney disease, unspecified; Z79.01 Long term (current) use of anticoagulants